=== PATIENT | male | born 1975 | race Caucasian/White ===

== ENCOUNTER 2020-01-20 02:10 | Emergency (ER) | payer BC, OTHER ==
[2020-01-20] MEDS ORDERED: methylPREDNISolone SOD SUCCI 125 MG/2 ML VIAL IV STA (02:29)
[2020-01-20] MEDS ORDERED: IPRATROPIUM-ALBUTEROL 3 ML NEB INHALATION STA (02:29)
[2020-01-20 02:52] LABS: Basophils # (A) 0.1 k/uL (0-0.2); Basophils % (A) 1 %; Eosinophils # (A) 0.4 k/uL (0-0.7); Eosinophils % (A) 5 %; HCT 47.3 % (39.0-53.0); HGB 15.8 gm/dL (13.0-17.5); Lymphocytes # (A) 2.4 k/uL (1.0-4.8); Lymphocytes % (A) 32 %; MCH 31.3 pg (25.0-35.0); MCHC 33.5 g/dL (31.0-37.0); MCV 93.5 fL (80.0-100.0); Mean Platelet Volume 7.5; Monocytes # (A) 0.4 k/uL (0-1.0); Monocytes % (A) 5 %; Neutrophils # (A) 3.9 k/uL (1.3-7.7); Neutrophils % (A) 53 %; Platelet Count 246 k/uL (150-450); RBC 5.06 m/uL (4.30-5.90); RDW 12.5 % (11.5-15.5); WBC 7.3 k/uL (3.8-10.6)
[2020-01-20 03:01] LABS: ALT 25 U/L (4-49); AST 39 U/L (17-59); African American GFR (CKD) >90 (>60 ml/min/1.73 sqM); Albumin 4.4 g/dL (3.5-5.0); Alkaline Phosphatase 93 U/L (38-126); Anion Gap 12 mmol/L; Blood Urea Nitrogen 19 mg/dL (9-20); Calcium 9.5 mg/dL (8.4-10.2); Carbon Dioxide 22 mmol/L (22-30); Chloride 105 mmol/L (98-107); Glucose 105 mg/dL (74-99); Magnesium 2.3 mg/dL (1.6-2.3); Non-African American GFR(CKD) >90 (>60 ml/min/1.73 sqM); Potassium 4.1 mmol/L (3.5-5.1); Sodium 139 mmol/L (137-145); Total Bilirubin 0.4 mg/dL (0.2-1.3); Total Protein 7.4 g/dL (6.3-8.2)
[2020-01-20 03:02] LABS: INR 0.9 (<1.2); Partial Thromboplastin Time 24.3 sec (22.0-30.0); Prothrombin Time 9.7 sec (9.0-12.0)
[2020-01-20] MEDS ORDERED: ALBUTEROL NEBULIZED 2.5 MG/3 ML INHALATION STA ×2 (03:15→04:10)
--- NOTE | 2020-01-20 03:23 | XR ---
EXAMINATION TYPE: XR chest 2V DATE OF EXAM: 01/20/2020 COMPARISON: NONE HISTORY: Difficulty breathing TECHNIQUE: FINDINGS: Heart is normal. Lungs are clear of consolidation. There are no hilar masses. There is no m ediastinal adenopathy. Bony thorax is intact. There is pulmonary hyperinflation and flattening of the diaphragm. IMPRESSION: There is evidence of COPD. No acute lung disease. Normal heart.
[2020-01-20 03:53] VITALS: RESP 19
--- NOTE | 2020-01-20 04:05 | ED ---
General Adult HPI - General Chief complaint: Shortness of Breath Stated complaint: SOB Time Seen by Provider: 01/20/20 02:23 Source: patient, family, RN notes reviewed, old records reviewed Mode of arrival: ambulatory Limitations: no limitations - History of Present Illness Initial comments: 44-year-old male patient with past history of COPD presents ED for shortness of breath. Patient reports that he has not had true follow-up with a primary care provider for his adult life. Patient has been seen at urgent cares and primary care as a few times over the last couple of years. Patient reports that he is always short of breath. Denies any chest pain. Reports that he uses inhalers at home that he gets from friends, also has a nebulizer which he uses when he is able to obtain albuterol. Reports that the shortness of breath has been worse the last 2 days. Reports he is wheezing. Denies any other complaints. Systemic: Pt denies fatigue, fever/chills, rash. Pt denies weakness, night sweats, weight loss. Neuro: Pt denies headache, visual disturbances, syncope or pre-syncope. HEENT: Pt denies ocular discharge or irritation, otalgia, rhinorrhea, pharyngitis or notable lymphadenopathy. Cardiopulmonary: Pt denies chest pain, heart palpitations, dyspnea on exertion. Abdominal/GI: Pt denies abdominal pain, n/v/d. : Pt denies dysuria, burning w/ urination, frequency/urgency. Denies new onset urinary or bowel incontinence. MSK: Pt denies myalgia, loss of strength or function in extremities. Neuro: Pt denies new onset weakness, paresthesias. - Related Data Previous Rx's Medication Instructions Recorded Albuterol Inhaler [Ventolin Hfa 1 - 2 puff INHALATION Q4-6H PRN #1 01/20/20 Inhaler] inhaler Albuterol Nebulized [Ventolin 2.5 mg INHALATION Q4H PRN 10 Days 01/20/20 Nebulized] #60 nebu predniSONE 50 mg PO DAILY #4 tab 01/20/20 Allergies Allergy/AdvReac Type Severity Reaction Status Date / Time No Known Allergies Allergy Verified 01/20/20 02:18 Review of Systems ROS Statement: Those systems with pertinent positive or pertinent negative responses have been documented in the HPI. ROS Other: All systems not noted in ROS Statement are negative. Past Medical History Past Medical History: No Reported History History of Any Multi-Drug Resistant Organisms: None Reported Past Surgical History: No Surgical Hx Reported Past Psychological History: No Psychological Hx Reported Smoking Status: Current every day smoker Past Alcohol Use History: Occasional Past Drug Use History: None Reported General Exam - General Exam Comments Initial Comments: Constitutional: NAD, AOX3, Pt has pleasant affect. HEENT: NC/AT, trachea midline, neck supple, no lymphadenopathy. Posterior pharynx non erythematous, without exudates. External ears appear normal, without discharge. Mucous membranes moist. Eyes PERRLA, EOM intact. There is no scleral icterus. No pallor noted. Cardiopulmonary: RRR, no murmurs, rubs or gallops, no JVD noted. Wheezing noted in anterior and posterior lung st, mild retractions are noted initially, moderate work of breathing. Significant improvement after multiple breathing treatments. Work of breathing has resolved, mild wheezing remains are much improved. No peripheral edema. Abdominal exam: Abdomen soft and non-distended. Abdomen non-tender to palpation in all 4 quadrants. Bowel sounds active in LLQ. No hepatosplenomegaly. No ecchymosis Neuro: CN II-XII grossly intact. No nuchal rigidity. No raccon eyes, no carreno sign, no hemotympanum. No cervical spinal tenderness. MSK: No posterior calf tenderness bilaterally, homans sign negative bilaterally. Posterior tibialis and radial pulse +2 bilaterally. Sensation intact in upper and lower extremities. Full active ROM in upper and lower extremities, 5/5 stregnth. Limitations: no limitations Course Vital Signs 01/20/20 01/20/20 01/20/20 02:15 02:45 03:02 Temperature 97.7 F Pulse Rate 102 H 93 90 Respiratory 20 Rate Blood Pressure 154/99 O2 Sat by Pulse 94 L 97 Oximetry 01/20/20 01/20/20 01/20/20 03:29 03:30 03:41 Temperature Pulse Rate 90 93 90 Respiratory 21 Rate Blood Pressure 135/93 O2 Sat by Pulse 93 L Oximetry 01/20/20 03:52 Temperature Pulse Rate 89 Respiratory 19 Rate Blood Pressure O2 Sat by Pulse 93 L Oximetry Medical Decision Making - Medical Decision Making 44-year-old male patient with past history of COPD presents ED for shortness of breath. Patient reports that he has not had true follow-up with a primary care provider for his adult life. Patient has been seen at urgent cares and primary care as a few times over the last couple of years. Patient reports that he is always short of breath. Denies any chest pain. Reports that he uses inhalers at home that he gets from friends, also has a nebulizer which he uses when he is able to obtain albuterol. Reports that the shortness of breath has been worse the last 2 days. Reports he is wheezing. Denies any other complaints. Patient initial vital signs displayed mildly decreased pule oxygenation 94%. Mild tachycardia. Physical exam didn't display mild retractions, moderate work of breathing, wheezing in anterior lung st. Patient was administered steroids, breathing treatments, patient significantly improved. Wheezing is still faint but much improved. Work of breathing has resolved. Patient oxygenating in the high 90s. Lymph investigations are noncompressive. EKG is nonischemic. Chest x-ray displayed COPD. Patient was counseled on smoking cessation. Patient was recommended admission to hospital however he declines. Patient was discharged with steroids, breathing treatments, referral for outpatient follow-up. Patient has strict return precautions. Case discussed with Dr Herrera. - Lab Data Result diagrams: 01/20/20 02:36 01/20/20 02:36 Lab Results 01/20/20 01/20/20 01/20/20 Range/Units 02:36 02:36 02:36 WBC 7.3 (3.8-10.6) k/uL RBC 5.06 (4.30-5.90) m/uL Hgb 15.8 (13.0-17.5) gm/dL Hct 47.3 (39.0-53.0) % MCV 93.5 (80.0-100.0) fL MCH 31.3 (25.0-35.0) pg MCHC 33.5 (31.0-37.0) g/dL RDW 12.5 (11.5-15.5) % Plt Count 246 (150-450) k/uL Neutrophils % 53 % Lymphocytes % 32 % Monocytes % 5 % Eosinophils % 5 % Basophils % 1 % Neutrophils # 3.9 (1.3-7.7) k/uL Lymphocytes # 2.4 (1.0-4.8) k/uL Monocytes # 0.4 (0-1.0) k/uL Eosinophils # 0.4 (0-0.7) k/uL Basophils # 0.1 (0-0.2) k/uL PT 9.7 (9.0-12.0) sec INR 0.9 (<1.2) APTT 24.3 (22.0-30.0) sec Sodium 139 (137-145) mmol/L Potassium 4.1 (3.5-5.1) mmol/L Chloride 105 (98-107) mmol/L Carbon Dioxide 22 (22-30) mmol/L Anion Gap 12 mmol/L BUN 19 (9-20) mg/dL Creatinine 0.87 (0.66-1.25) mg/dL Est GFR (CKD-EPI)AfAm >90 (>60 ml/min/1.73 sqM) Est GFR (CKD-EPI)NonAf >90 (>60 ml/min/1.73 sqM) Glucose 105 H (74-99) mg/dL Plasma Lactic Acid Georgi (0.7-2.0) mmol/L Calcium 9.5 (8.4-10.2) mg/dL Magnesium 2.3 (1.6-2.3) mg/dL Total Bilirubin 0.4 (0.2-1.3) mg/dL AST 39 (17-59) U/L ALT 25 (4-49) U/L Alkaline Phosphatase 93 (38-126) U/L Troponin I (0.000-0.034) ng/mL NT-Pro-B Natriuret Pep pg/mL Total Protein 7.4 (6.3-8.2) g/dL Albumin 4.4 (3.5-5.0) g/dL 01/20/20 01/20/20 01/20/20 Range/Units 02:36 02:36 02:36 WBC (3.8-10.6) k/uL RBC (4.30-5.90) m/uL Hgb (13.0-17.5) gm/dL Hct (39.0-53.0) % MCV (80.0-100.0) fL MCH (25.0-35.0) pg MCHC (31.0-37.0) g/dL RDW (11.5-15.5) % Plt Count (150-450) k/uL Neutrophils % % Lymphocytes % % Monocytes % % Eosinophils % % Basophils % % Neutrophils # (1.3-7.7) k/uL Lymphocytes # (1.0-4.8) k/uL Monocytes # (0-1.0) k/uL Eosinophils # (0-0.7) k/uL Basophils # (0-0.2) k/uL PT (9.0-12.0) sec INR (<1.2) APTT (22.0-30.0) sec Sodium (137-145) mmol/L Potassium (3.5-5.1) mmol/L Chloride (98-107) mmol/L Carbon Dioxide (22-30) mmol/L Anion Gap mmol/L BUN (9-20) mg/dL Creatinine (0.66-1.25) mg/dL Est GFR (CKD-EPI)AfAm (>60 ml/min/1.73 sqM) Est GFR (CKD-EPI)NonAf (>60 ml/min/1.73 sqM) Glucose (74-99) mg/dL Plasma Lactic Acid Georgi 1.7 (0.7-2.0) mmol/L Calcium (8.4-10.2) mg/dL Magnesium (1.6-2.3) mg/dL Total Bilirubin (0.2-1.3) mg/dL AST (17-59) U/L ALT (4-49) U/L Alkaline Phosphatase (38-126) U/L Troponin I <0.012 (0.000-0.034) ng/mL NT-Pro-B Natriuret Pep 60 pg/mL Total Protein (6.3-8.2) g/dL Albumin (3.5-5.0) g/dL Disposition Clinical Impression: COPD exacerbation Disposition: HOME SELF-CARE Condition: Stable Instructions (If sedation given, give patient instructions): COPD (Chronic Obstructive Pulmonary Disease) (DC) Additional Instructions: Use medications as directed. Use breathing treatments as needed for shortness of breath. Take steroids daily for the next 4 days. Follow-up with primary care provider and junior estimator tomorrow. Return to ER if condition worsens in any way. Prescriptions: predniSONE 50 mg PO DAILY #4 tab Albuterol Inhaler [Ventolin Hfa Inhaler] 1 - 2 puff INHALATION Q4-6H PRN #1 inhaler PRN Reason: Cough Albuterol Nebulized [Ventolin Nebulized] 2.5 mg INHALATION Q4H PRN 10 Days #60 nebu PRN Reason: Wheezing Is patient prescribed a controlled substance at d/c from ED?: No Referrals: None,Stated [Primary Care Provider] - 1-2 days Vu Marte DO [Doctor of Osteopathic Medicine] - 1-[address] [facility] [NON-STAFF] - 1-2 days
[2020-01-20 04:30] VITALS: BP 148/94; PULSE 92; TEMP 97.6
== END 2020-01-20 04:30 | disposition home or self-care (01) ==
LOC: EC 02:10
DX: J44.1 Chronic obstructive pulmonary disease with (acute) exacerbation (principal); F17.200 Nicotine dependence, unspecified, uncomplicated; Z76.0 Encounter for issue of repeat prescription
CPT/HCPCS: 36415; 94640 ×2; 93005; 83880; 80053; 83605; 83735; 84484; 85025; 85610; 85730; 71046; 99285; 96374; J2930

== ENCOUNTER 2023-10-02 13:34 | Emergency (ER) | payer OTHER ==
[2023-10-02] MEDS ORDERED: SODIUM CHLORIDE 0.9% 1,000 ML IV STA (14:46)
[2023-10-02] MEDS ORDERED: DIPH,PERTUS(ACELL)TETVAC-LF 0.5 ML VIAL IM ONE (14:46)
[2023-10-02] MEDS ORDERED: HYDROmorphone 1 MG/ML 1 ML SYRINGE IVP STA ×2 (14:46→16:28)
[2023-10-02 15:09] LABS: Basophils % (A) 0 %; Eosinophils # (A) 0.4 k/uL (0-0.7); Eosinophils % (A) 5 %; HCT 40.7 % (39.0-53.0); HGB 13.2 gm/dL (13.0-17.5); Lymphocytes # (A) 1.5 k/uL (1.0-4.8); Lymphocytes % (A) 18 %; MCH 30.6 pg (25.0-35.0); MCHC 32.4 g/dL (31.0-37.0); MCV 94.3 fL (80.0-100.0); Mean Platelet Volume 8.1; Monocytes # (A) 0.4 k/uL (0-1.0); Monocytes % (A) 5 %; Neutrophils # (A) 5.8 k/uL (1.3-7.7); Neutrophils % (A) 70 %; Platelet Count 225 k/uL (150-450); RBC 4.31 m/uL (4.30-5.90); RDW 13.1 % (11.5-15.5); WBC 8.3 k/uL (3.8-10.6)
[2023-10-02 15:19] LABS: ALT 27 U/L (4-49); AST 50 U/L (17-59); African American GFR (CKD) >90 (>60 ml/min/1.73 sqM); Albumin 3.8 g/dL (3.5-5.0); Alkaline Phosphatase 102 U/L (38-126); Anion Gap 10 mmol/L; Blood Urea Nitrogen 23 mg/dL (9-20); Calcium 8.8 mg/dL (8.4-10.2); Carbon Dioxide 25 mmol/L (22-30); Chloride 105 mmol/L (98-107); Creatine Kinase 592 U/L (55-170); Glucose 123 mg/dL (74-99); Non-African American GFR(CKD) >90 (>60 ml/min/1.73 sqM); Potassium 3.9 mmol/L (3.5-5.1); Sodium 140 mmol/L (137-145); Total Bilirubin 0.6 mg/dL (0.2-1.3); Total Protein 6.4 g/dL (6.3-8.2)
[2023-10-02] MEDS ORDERED: SODIUM CHLORIDE 0.9% 1,000 ML IV ONE (15:49)
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
[2023-10-02 16:26] VITALS: RESP 18; TEMP 98.1
[2023-10-02] MEDS ORDERED: HYDROmorphone 1 MG/ML 1 ML SYRINGE IVP PRN (18:16)
[2023-10-02] MEDS ORDERED: NALOXONE 0.4 MG/ML 1 ML VIAL IV PRN (18:16)
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
[2023-10-02] MEDS ORDERED: KETOROLAC 15 MG/ML 1 ML VIAL IVP SCH (18:30)
[2023-10-02] MEDS ORDERED: SODIUM CHLORIDE 0.9% 1,000 ML IV SCH (18:30)
[2023-10-02 22:38] VITALS: BP 154/84; PULSE 84
[2023-10-02 23:26] LABS: Appearance,Urine Clear (Clear); Bacteria,Urine Rare /hpf; Bilirubin,Urine Negative (Negative); Blood,Urine Large (Negative); Budding Yeast,Urine Few /hpf; Color,Urine Yellow; Glucose,Urine (UA) Negative (Negative); Ketones,Urine Negative (Negative); Leukocyte Esterase,Urine Moderate (Negative); Mucus,Urine Rare /hpf; Nitrite,Urine Negative (Negative); Protein,Urine 1+ (Negative); RBC,Urine >182 /hpf (0-5); Squamous Epithelial Cell,Urine 2 /hpf (0-4); Urobilinogen,Urine <2.0 mg/dL (<2.0); WBC,Urine 6 /hpf (0-5)
[2023-10-02 23:30] LABS: Amphetamine Screen,Urine Detected (NotDetected); Benzodiazepines Screen,Urine Detected (NotDetected); Cocaine Screen,Urine Not Detected (NotDetected); Opiate Screen,Urine Detected (NotDetected); Phencyclidine Screen,Urine Not Detected (NotDetected); Urn Cannabinoid Scrn Not Detected (NotDetected)
[2023-10-02 23:31] LABS: Barbiturate Screen,Urine Not Detected (NotDetected); Methadone Screen, Urine Not Detected (NotDetected); Oxycodone Screen, Urine Not Detected (NotDetected); Tricyclic Antidepressant,Urine Not Detected (NotDetected)
[2023-10-03 00:22] LABS: Specific Gravity,Urine >1.050 (1.001-1.035)
== END 2023-10-02 23:48 | disposition other institution (70) ==
LOC: EC 13:34 → 6NMEDSUR 18:16 → UNDOADMOB 18:16 → EC 23:48
DX: S00.91XA Abrasion of unspecified part of head, initial encounter (principal); R74.8 Abnormal levels of other serum enzymes; J45.909 Unspecified asthma, uncomplicated; F17.200 Nicotine dependence, unspecified, uncomplicated; Z79.51 Long term (current) use of inhaled steroids; Z23 Encounter for immunization; W23.0XXA Caught, crushed, jammed, or pinched between moving objects, initial encounter
CPT/HCPCS: 36415; 80053; 82550; 83605; 85025; 81001; 80306; 73590; 72170; 71046; 72125; 70450; 74177; 90715; 99285; 96374; 96375; 96376 ×2; 96361; 90471; J1170; J1885; Q9967

== ENCOUNTER 2023-11-05 23:21 | Inpatient (IN) | payer OTHER ==
[2023-11-05] MEDS ORDERED: HYDROmorphone 1 MG/ML 1 ML SYRINGE IVP STA (23:29)
[2023-11-05] MEDS ORDERED: VANCOMYCIN IV PER PHARMACY 1 EACH MISC MISCELLANE PRN (23:38)
[2023-11-05] MEDS ORDERED: PIPERACILLIN-TAZOBACTAM 3.375 GM in SODIUM CHLORIDE 0.9% 100 ML IVPB STA (23:40)
[2023-11-05] MEDS ORDERED: ONDANSETRON 4 MG/2 ML VIAL IVP PRN (23:40)
[2023-11-05] MEDS ORDERED: NALOXONE 0.4 MG/ML 1 ML VIAL IV PRN (23:40)
[2023-11-05] MEDS ORDERED: VANCOMYCIN 1,250 MG in SODIUM CHLORIDE 0.9% 250 ML IVPB STA (23:41)
--- NOTE | 2023-11-06 00:12 | ED ---
General Adult HPI - General Chief complaint: Recheck/Abnormal Lab/Rx Stated complaint: Surgical consult Time Seen by Provider: 11/05/23 23:22 Source: patient, EMS, RN notes reviewed, old records reviewed Mode of arrival: EMS Limitations: no limitations - History of Present Illness Initial comments: 48-year-old male sent for evaluation of soft tissue infection from outside hospital. Patient was seen at this institution approximately one month ago with traumatic injury to the left leg. There was no associated fracture just soft tissue injury. He developed infection and was treated with antibiotics approximately 2 weeks ago and was seen at outside hospital where he was prescribed continuation of antibiotics but was unable to get this medication filled. This was approximately one week ago. He developed worsening pain swelling and drainage over the past one week. He was seen at [facility] today where he received workup including CBC, CMP, CRP, computed tomography scan of the leg and was initiated on antibiotics. He was transferred to this institution for further evaluation of left leg soft tissue infection. He was given Zosyn and vancomycin prior to transfer. - Related Data Home Medications Medication Instructions Recorded Confirmed Albuterol Inhaler [Ventolin Hfa 1 - 2 puff INHALATION RT-Q4H PRN 10/02/23 10/02/23 Inhaler] Budesonide/Formoterol Fumarate 2 puff INHALATION RT-BID 10/02/23 10/02/23 [Symbicort 160-4.5 Mcg Inhaler] Allergies Allergy/AdvReac Type Severity Reaction Status Date / Time No Known Allergies Allergy Verified 10/02/23 18:05 Review of Systems ROS Statement: Those systems with pertinent positive or pertinent negative responses have been documented in the HPI. ROS Other: All systems not noted in ROS Statement are negative. Past Medical History Past Medical History: Asthma History of Any Multi-Drug Resistant Organisms: None Reported Past Surgical History: No Surgical Hx Reported Past Psychological History: No Psychological Hx Reported Smoking Status: Current every day smoker Past Alcohol Use History: Occasional Past Drug Use History: None Reported General Exam General appearance: alert, in no apparent distress Head exam: Present: atraumatic, normocephalic Eye exam: Present: normal appearance, PERRL Respiratory exam: Present: normal lung sounds bilaterally. Absent: respiratory distress, wheezes Cardiovascular Exam: Present: normal rhythm, tachycardia GI/Abdominal exam: Present: soft. Absent: distended, tenderness, guarding Extremities exam: Present: other (Erythema and warmth from the proximal lateral leg approximately two thirds cell. There is 2 areas of open abscess with purulent drainage.) Neurological exam: Present: alert, CN II-XII intact Psychiatric exam: Present: normal affect, normal mood Course Vital Signs 11/05/23 11/05/23 23:23 23:58 Temperature 100.3 F H Pulse Rate 121 H 123 H Respiratory 22 28 H Rate Blood Pressure 175/115 178/95 O2 Sat by Pulse 96 94 L Oximetry Medical Decision Making - Medical Decision Making Was pt. sent in by a medical professional or institution (, PA, JOB DEVELOPER FOR DEAF ADULTS, urgent care, hospital, or jail...) When possible be specific @ -[Sent from [facility] Did you speak to anyone other than the patient for history (EMS, parent, family, police, friend...)? What history was obtained from this source @ -[No] Did you review nursing and triage notes (agree or disagree)? Why? @ -[I reviewed and agree with nursing and triage notes] Were old charts reviewed (outside hosp., previous admission, EMS record, old EKG, old radiological studies, urgent care reports/EKG's, jail records)? Report findings @ -[No old charts were reviewed] Differential Diagnosis (chest pain, altered mental status, abdominal pain women, abdominal pain men, vaginal bleeding, weakness, fever, dyspnea, syncope, headache, dizziness, GI bleed, back pain, seizure, CVA, palpatations, mental health, musculoskeletal)? @ -Skin soft tissue infection, necrotizing fasciitis, abscess with cellulitis EKG interpreted by me (3pts min.). @ -[As above] X-rays interpreted by me (1pt min.). @ -[None done] CT interpreted by me (1pt min.). @ CT of the left leg, images loaded from outside hospital, there is fluid collection along the lateral aspect of the left leg without gas formation. U/S interpreted by me (1pt. min.). @ -[None done] What testing was considered but not performed or refused? (CT, X-rays, U/S, labs)? Why? @ -[None] What meds were considered but not given or refused? Why? @ -[None] Did you discuss the management of the patient with other professionals (professionals i.e. , PA, JOB DEVELOPER FOR DEAF ADULTS, lab, RT, psych nurse, social media campaign manager, account manager education, teacher, bank operations officer, telephonic case manager)? Give summary @ -[No] Was smoking cessation discussed for >3mins.? @ -[No] Was critical care preformed (if so, how long)? @ -[No] Were there social determinants of health that impacted care today? How? (Homelessness, low income, unemployed, alcoholism, drug addiction, transportation, low edu. Level, literacy, decrease access to med. care, long term, rehab)? @ -[No] Was there de-escalation of care discussed even if they declined (Discuss DNR or withdrawal of care, Hospice)? DNR status @ -[No] What co-morbidities impacted this encounter? (DM, HTN, Smoking, COPD, CAD, Cancer, CVA, ARF, Chemo, Hep., AIDS, mental health diagnosis, sleep apnea, morbid obesity)? @ -[None] Was patient admitted / discharged? Hospital course, mention meds given and route, prescriptions, significant lab abnormalities, going to OR and other pertinent info. @ -48-year-old male with soft tissue infection of the left leg. Patient had CT report which showed soft tissue infection without osteomyelitis and without gas formation. He had a normal white blood cell count, elevated CRP. Patient was started on vancomycin and Zosyn prior to transfer. Repeat laboratory studies will be obtained and antibiotics will be continued. The infection is freely draining purulent material at the time my evaluation. This is sent for culture. The patient will benefit both from surgical consultation and factious disease consultation. He will be admitted to internal medicine. Undiagnosed new problem with uncertain prognosis? @ -[No] Drug Therapy requiring intensive monitoring for toxicity (Heparin, Nitro, Insulin, Cardizem)? @ -[No] Were any procedures done? @ -[No] Diagnosis/symptom? @ -[Left leg abscess with cellulitis, sepsis Acute, or Chronic, or Acute on Chronic? @ -[Acute Uncomplicated (without systemic symptoms) or Complicated (systemic symptoms)? @ -[default] Side effects of treatment? @ -[No] Exacerbation, Progression, or Severe Exacerbation? @ -[No] Poses a threat to life or bodily function? How? (Chest pain, [place], [place], pneumonia, PE, COPD, DKA, ARF, appy, cholecystitis, CVA, Diverticulitis, Homicidal, Suicidal, threat to staff... and all critical care pts) @ -[No] Disposition Clinical Impression: Abscess of left leg, Cellulitis Disposition: ADMITTED IP TO THIS HOSP Condition: Stable Is patient prescribed a controlled substance at d/c from ED?: No Referrals: None,Stated [Primary Care Provider] - 1-2 days Time of Disposition: 00:13
[2023-11-06] MEDS ORDERED: CLINDAMYCIN 600 MG in DEXTROSE 5% IN WATER 50 ML IVPB STA ×2 (00:16)
[2023-11-06] MEDS: SODIUM CHLORIDE 0.9% 1,000 ML IV SCH ×4 (00:46→23:19)
[2023-11-06 00:56] LABS: Basophils % (A) 1 %; Eosinophils # (A) 0.1 k/uL (0-0.7); Eosinophils % (A) 3 %; HCT 42.6 % (39.0-53.0); HGB 13.6 gm/dL (13.0-17.5); Lymphocytes # (A) 1.2 k/uL (1.0-4.8); Lymphocytes % (A) 23 %; MCH 31.6 pg (25.0-35.0); MCHC 31.8 g/dL (31.0-37.0); MCV 99.2 fL (80.0-100.0); Mean Platelet Volume 7.6; Monocytes # (A) 0.7 k/uL (0-1.0); Monocytes % (A) 13 %; Neutrophils % (A) 58 %; Platelet Count 313 k/uL (150-450); RDW 12.8 % (11.5-15.5); WBC 5.3 k/uL (3.8-10.6)
[2023-11-06 01:14] LABS: ALT 54 U/L (4-49); AST 53 U/L (17-59); African American GFR (CKD) >90 (>60 ml/min/1.73 sqM); Albumin 3.5 g/dL (3.5-5.0); Alkaline Phosphatase 150 U/L (38-126); Anion Gap 10 mmol/L; Blood Urea Nitrogen 21 mg/dL (9-20); Calcium 8.7 mg/dL (8.4-10.2); Carbon Dioxide 25 mmol/L (22-30); Chloride 102 mmol/L (98-107); Glucose 106 mg/dL (74-99); Non-African American GFR(CKD) 86 (>60 ml/min/1.73 sqM); Potassium 4.7 mmol/L (3.5-5.1); Sodium 137 mmol/L (137-145); Total Bilirubin 0.4 mg/dL (0.2-1.3); Total Protein 6.4 g/dL (6.3-8.2)
[2023-11-06] MEDS: HYDROmorphone 1 MG/ML 1 ML SYRINGE IVP PRN ×7 (02:04→23:13)
[2023-11-06] MEDS: VANCOMYCIN 1,250 MG in SODIUM CHLORIDE 0.9% 250 ML IVPB SCH ×2 (05:31→17:11)
[2023-11-06] MEDS: ACETAMINOPHEN TAB 325 MG TAB PO PRN ×2 (08:39→19:54)
[2023-11-06] MEDS ORDERED: PIPERACILLIN-TAZOBACTAM 3.375 GM in SODIUM CHLORIDE 0.9% 100 ML IVPB SCH (09:00)
[2023-11-06] MEDS ORDERED: CLINDAMYCIN 600 MG in DEXTROSE 5% IN WATER 50 ML IVPB SCH ×2 (10:00)
[2023-11-06] MEDS ORDERED: ALBUTEROL NEBULIZED 2.5 MG/3 ML INHALATION PRN (11:10)
--- NOTE | 2023-11-06 14:25 | P.CNOR ---
History of Present Illness - HPI Consult date: 11/06/23 Requesting physician: Bere Aguirre Consult reason: other (left leg abscess, trauma hx) History of present illness: Patient is a 48-year-old male who was transferred to [facility] for evaluation of soft tissue infection from [facility]. Patient was seen and [facility] the emergency department about 1 month ago for traumatic injury to left. Patient had no fractures at that time and only had soft tissue injuries. Patient did develop infection to the left calf and was treated with antibiotics about 2 weeks ago. Patient did present to [facility] and was prescribed continuation for antibiotics however, patient was not able to get medication filled. Patient states over the past week he has had increased pain and swelling to the left lower extremity as well as drainage. Patient does mention he has had fever and chills as well. Patient states he did present to [facility] yesterday where he had a computed tomography scan of the left lower extremity. Patient was transferred to the emergency department. For further evaluation continued care. Patient was seen at bedside this afternoon lying semirecumbent position with dressing present over the left lower extremity. Patient states he has been weightbearing as tolerated since the i njury, however, patient does have increased pain to the left leg when he puts weight on it. Patient denies any left ankle/left knee pain. Patient does say he has some pain in left foot. Patient states there has been increased drainage over the past several days. Patient also states that is an increase in swelling and redness. Patient denies any previous orthopedic surgical history. Patient says has been given several different antibiotics were the past month. Patient denies chest pain, shortness breath, nausea, vomiting, change in vision, smell/bladder control. Past Medical History Past Medical History: Asthma, COPD Additional Past Medical History / Comment(s): treated OP for leg infection History of Any Multi-Drug Resistant Organisms: None Reported Past Surgical History: No Surgical Hx Reported Past Psychological History: No Psychological Hx Reported Smoking Status: Never smoker Past Alcohol Use History: Occasional Past Drug Use History: None Reported Medications and Allergies Home Medications Medication Instructions Recorded Confirmed Type Albuterol Inhaler [Ventolin Hfa 1 - 2 puff INHALATION RT-Q4H PRN 10/02/23 11/06/23 History Inhaler] Budesonide/Formoterol Fumarate 2 puff INHALATION RT-BID 10/02/23 11/06/23 History [Symbicort 160-4.5 Mcg Inhaler] Allergies Allergy/AdvReac Type Severity Reaction Status Date / Time No Known Allergies Allergy Verified 11/06/23 07:37 Physical Examination Inspection: Nonhealing wound present to the left lower extremity over the left anterolateral calf. Positive for purulent drainage. The drainage from one wound measuring 2 x 2 centimeters roughly in diameter. There is also wound 1 x 1 cm in diameter just distal to the proximal wound. Positive for moderate swelling diffusely throughout the calf as well as significant erythema. Negative for any open fractures, significant ecchymosis. Sensation: Equal, symmetric, intact throughout the upper extremities. Palpation: Severe TTP throughout left calf near wound. Moderate TTP over dorsum of left foot. NTTP throughout rest of exam. Range of motion: Full range of motion throughout bilateral upper and lower extremities on exam. Motor: 4+/5 in all major motor in bilateral upper and lower extremities. Neurovascular: Radial pulses intact, 2+. Cap refill under 3 seconds in digits upper extremities. DP pulses palpable. Special tests: Negative Homans bilaterally Results - Labs Labs: Abnormal Lab Results - Last 24 Hours (Table) 11/05/23 Range/Units 23:43 BUN 21 H (9-20) mg/dL Glucose 106 H (74-99) mg/dL ALT 54 H (4-49) U/L Alkaline Phosphatase 150 H (38-126) U/L H & H 11/05/23 Range/Units 23:43 Hgb 13.6 (13.0-17.5) gm/dL Hct 42.6 (39.0-53.0) % Result Diagrams: 11/05/23 23:43 11/05/23 23:43 - Diagnostic results Comments: Computed tomography scan of the left lower extremity tibia/fibula negative for any fracture. There is a small area in the left calf presenting with soft tissue swelling. Appears to be superficial. Assessment and Plan Assessment: 1. Left lower extremity soft tissue wound, nonhealing Plan: 1. Left lower extremity soft tissue wound, nonhealing - I did review the findings of the computed tomography scan of the left lower extremity performed at [facility] with my attending, Dr. Bowles. Computed tomography scan of the left lower extremity tibia/fibula negative for any fracture. There is a small area in the left calf presenting with soft tissue swelling/fluid. Appears to be superficial. Based on the findings of the exam and computed tomography scan performed at outside facility, at this time we are not recommending any emergent/urgent orthopedic surgical intervention. We do recommend general surge ry and wound care to see patient. Due to nonhealing wound to the left lower extremity calf, patient may potentially need skin grafting. Plan for daily dressing changes with petroleum gauze, 4 x 4's, ABD and Kerlix. Appreciate wound care, ID, and general surgery management. Abx per ID/medicine. We will be available as needed. No orthopedic intervention planned. 2. Appreciate medical, wound care, ID and general surgery management 3. Pain management - tylenol 4. DVT prophylaxis - heparin 5. GI prophylaxis recs 6. PT/OT - weightbearing as tolerated with walker as needed 7. Appreciate consult Time with Patient: Less than 30
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
[2023-11-06] MEDS: AMPICILLIN-SULBACTAM 3 GM in SODIUM CHLORIDE 0.9% 100 ML IVPB SCH ×2 (17:11→23:13)
[2023-11-06] MEDS: HEPARIN SODIUM,PORCINE 5,000 UNIT/ML 1 ML VIAL SQ SCH ×2 (17:11→23:13)
[2023-11-06] MEDS: SYMBICORT 160-4.5 MCG INHALER INHALATION SCH (21:22)
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
[2023-11-07] MEDS: HYDROmorphone 1 MG/ML 1 ML SYRINGE IVP PRN ×6 (03:42→21:52)
[2023-11-07] MEDS: AMPICILLIN-SULBACTAM 3 GM in SODIUM CHLORIDE 0.9% 100 ML IVPB SCH ×3 (06:10→12:35)
[2023-11-07] MEDS: VANCOMYCIN 1,250 MG in SODIUM CHLORIDE 0.9% 250 ML IVPB SCH ×3 (06:10→23:22)
[2023-11-07] MEDS: SODIUM CHLORIDE 0.9% 1,000 ML IV SCH ×3 (06:10→21:53)
[2023-11-07 07:01] LABS: Basophils % (A) 1 %; Eosinophils # (A) 0.4 k/uL (0-0.7); Eosinophils % (A) 6 %; HCT 37.8 % (39.0-53.0); HGB 12.2 gm/dL (13.0-17.5); Lymphocytes # (A) 1.3 k/uL (1.0-4.8); Lymphocytes % (A) 23 %; MCH 31.8 pg (25.0-35.0); MCHC 32.4 g/dL (31.0-37.0); MCV 98.3 fL (80.0-100.0); Mean Platelet Volume 7.4; Monocytes # (A) 0.6 k/uL (0-1.0); Monocytes % (A) 11 %; Neutrophils # (A) 3.1 k/uL (1.3-7.7); Neutrophils % (A) 55 %; Platelet Count 304 k/uL (150-450); RBC 3.84 m/uL (4.30-5.90); RDW 12.4 % (11.5-15.5); WBC 5.6 k/uL (3.8-10.6)
[2023-11-07 07:16] LABS: African American GFR (CKD) >90 (>60 ml/min/1.73 sqM); Anion Gap 8 mmol/L; Blood Urea Nitrogen 18 mg/dL (9-20); Calcium 8.2 mg/dL (8.4-10.2); Carbon Dioxide 24 mmol/L (22-30); Chloride 107 mmol/L (98-107); Glucose 120 mg/dL (74-99); Non-African American GFR(CKD) >90 (>60 ml/min/1.73 sqM); Potassium 4.2 mmol/L (3.5-5.1); Sodium 139 mmol/L (137-145)
[2023-11-07] MEDS: SYMBICORT 160-4.5 MCG INHALER INHALATION SCH ×2 (08:55→20:18)
[2023-11-07] MEDS: FAMOTIDINE 20 MG TAB PO SCH ×2 (08:59→21:52)
[2023-11-07] MEDS: HEPARIN SODIUM,PORCINE 5,000 UNIT/ML 1 ML VIAL SQ SCH ×3 (09:05→23:22)
[2023-11-07] MEDS ORDERED: IV FLUID CONTINUATION 900 ML IV ONE (11:36)
[2023-11-07] MEDS ORDERED: fentaNYL (PF) 50 MCG/ML 2 ML AMP IVP ONE (11:47)
[2023-11-07] MEDS ORDERED: fentaNYL (PF) 50 MCG/ML 2 ML AMP ONE (12:30)
[2023-11-07] MEDS ORDERED: PROPOFOL 10 MG/ML 20 ML VIAL IV ONE (12:30)
[2023-11-07] MEDS ORDERED: MIDAZOLAM 2 MG/2 ML VIAL ONE (12:30)
[2023-11-07] MEDS ORDERED: LIDOCAINE 1% INJ 10MG/ML (20 ML MDV) ONE (12:30)
--- NOTE | 2023-11-07 12:57 | P.PCN ---
Date of Procedure: 11/07/23 Procedure(s) Performed: PREOPERATIVE DIAGNOSIS: Left leg abscess POSTOPERATIVE DIAGNOSIS: Same PROCEDURE: Incision drainage and debridement left cath abscess SURGEON: Betsy EBL: 5 mL ANESTHESIA: Gen. COMPLICATIONS: None OPERATIVE PROCEDURE: Patient placed on the operating table in the supine position. The lateral aspect of the left Was prepped and draped sterilely. The patient had 2 wounds present with necrotic skin. Superior hills measuring 3 x 3.5 cm, inferior wound measuring 2 x 2.5 cm. There was a 1 cm bridge of skin between the 2. The necrotic skin was excised including the subcutaneous tissues. Purulent fluid was then evacuated. There was tunneling of the wound circumferentially mostly in the anterior location by about 3-5 cm. Additional septations were bluntly dissected. Given the significant tunneling and undermining of the skin surfaces I removed the skin bridge between the 2 sites with a subsequent wound now measuring 6.5 x 3.5 cm. The undermining was irrigated thoroughly with saline. A curet was used to debride the subcutaneous muscular layer and superficial fascia as well. Healthy tissue was identified at this time. The wound was then packed with a lightly moistened Clare roll. Sterile dressings were applied. DISPOSITION: Stable to recovery room
[2023-11-07] MEDS ORDERED: VANCOMYCIN TROUGH DUE 1 EACH MISC MISCELLANE ONE (16:00)
[2023-11-08] MEDS: TEMAZEPAM 7.5 MG CAP PO PRN (00:15)
[2023-11-08] MEDS: HYDROmorphone 0.5 MG/0.5 ML SYRINGE IVP PRN (01:37)
[2023-11-08] MEDS: HYDROmorphone 1 MG/ML 1 ML SYRINGE IVP PRN ×5 (05:11→20:48)
[2023-11-08] MEDS: SODIUM CHLORIDE 0.9% 1,000 ML IV SCH ×3 (05:16→22:12)
[2023-11-08] MEDS: SYMBICORT 160-4.5 MCG INHALER INHALATION SCH ×2 (09:02→20:18)
[2023-11-08] MEDS: HEPARIN SODIUM,PORCINE 5,000 UNIT/ML 1 ML VIAL SQ SCH ×2 (09:19→17:02)
[2023-11-08] MEDS: VANCOMYCIN 1,250 MG in SODIUM CHLORIDE 0.9% 250 ML IVPB SCH ×2 (09:20→17:02)
[2023-11-08] MEDS: FAMOTIDINE 20 MG TAB PO SCH ×2 (09:20→22:15)
[2023-11-08 09:39] LABS: African American GFR (CKD) >90 (>60 ml/min/1.73 sqM); Non-African American GFR(CKD) >90 (>60 ml/min/1.73 sqM)
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
--- NOTE | 2023-11-08 12:56 | P.PN ---
Subjective Progress Note Date: 11/08/23 CHIEF COMPLAINT: Left lower leg abscess HISTORY OF PRESENT ILLNESS: Patient is postop day #1 status post incision and drainage with debridement of left calf abscess. Patient reports pain is decreased. He denies a nausea vomiting. Afebrile. Cultures growing MRSA. PHYSICAL EXAM: VITAL SIGNS: Reviewed. GENERAL: Well-developed in no acute distress. Extremities: Left lateral calf dressing with serous drainage. Decreased erythema. Decrease tenderness with palpation ASSESSMENT: 1. Left calf abscess status post incision and drainage with debridement PLAN: -Patient to shower daily -Continue local wound care -Continue antibiotics per ID service Physician Lighting Engineer note has been reviewed by physician. Signing provider agrees with the documented findings, assessment, and plan of care. Objective - Vital Signs Vital signs: Vital Signs Temp 98.4 F 11/08/23 12:00 Pulse 88 11/08/23 12:00 Resp 14 11/08/23 12:00 BP 149/86 11/08/23 12:00 Pulse Ox 95 11/08/23 12:00 FiO2 Intake & Output 11/07/23 11/08/23 11/08/23 18:59 06:59 18:59 Intake Total 550 Output Total 680 600 250 Balance -130 -600 -250 Intake: IV 550 Output: Urine 675 600 250 Estimated Blood Loss 5 Other: Voiding Method Toilet Toilet Urinal Urinal - Labs CBC & Chem 7: 11/07/23 06:26 11/08/23 08:28 Labs: Microbiology - Last 24 Hours (Table) 11/06/23 12:30 Gram Stain - Final Leg - Left Wound Culture - Final Methicillin resist S. aureus 11/05/23 23:43 Gram Stain - Final Leg - Left Wound Culture - Final Methicillin resist S. aureus 11/07/23 12:50 Gram Stain - Preliminary Leg - Left
[2023-11-09] MEDS: HYDROmorphone 1 MG/ML 1 ML SYRINGE IVP PRN ×4 (00:23→20:12)
[2023-11-09] MEDS: HEPARIN SODIUM,PORCINE 5,000 UNIT/ML 1 ML VIAL SQ SCH ×3 (00:23→16:04)
[2023-11-09] MEDS: VANCOMYCIN 1,250 MG in SODIUM CHLORIDE 0.9% 250 ML IVPB SCH ×3 (00:23→16:04)
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
[2023-11-09] MEDS ORDERED: VANCOMYCIN TROUGH DUE 1 EACH MISC MISCELLANE ONE (07:00)
[2023-11-09] MEDS: FAMOTIDINE 20 MG TAB PO SCH ×2 (08:28→20:12)
[2023-11-09 09:07] LABS: Basophils % (A) 1 %; Eosinophils # (A) 0.4 k/uL (0-0.7); Eosinophils % (A) 8 %; HCT 38.1 % (39.0-53.0); HGB 12.4 gm/dL (13.0-17.5); Lymphocytes # (A) 1.3 k/uL (1.0-4.8); Lymphocytes % (A) 24 %; MCH 31.3 pg (25.0-35.0); MCHC 32.5 g/dL (31.0-37.0); MCV 96.1 fL (80.0-100.0); Mean Platelet Volume 7.7; Monocytes # (A) 0.6 k/uL (0-1.0); Monocytes % (A) 10 %; Neutrophils # (A) 2.8 k/uL (1.3-7.7); Neutrophils % (A) 53 %; Platelet Count 392 k/uL (150-450); RBC 3.96 m/uL (4.30-5.90); RDW 12.7 % (11.5-15.5); WBC 5.3 k/uL (3.8-10.6)
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
[2023-11-09 09:17] LABS: African American GFR (CKD) >90 (>60 ml/min/1.73 sqM); Anion Gap 10 mmol/L; Blood Urea Nitrogen 12 mg/dL (9-20); Calcium 8.6 mg/dL (8.4-10.2); Carbon Dioxide 23 mmol/L (22-30); Chloride 106 mmol/L (98-107); Glucose 125 mg/dL (74-99); Non-African American GFR(CKD) >90 (>60 ml/min/1.73 sqM); Potassium 3.9 mmol/L (3.5-5.1); Sodium 139 mmol/L (137-145)
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
[2023-11-09] MEDS: SYMBICORT 160-4.5 MCG INHALER INHALATION SCH ×2 (09:25→21:38)
--- NOTE | 2023-11-09 12:24 | P.PN ---
Subjective Progress Note Date: 11/09/23 CHIEF COMPLAINT: Left lower leg abscess HISTORY OF PRESENT ILLNESS: Patient is postop day #2 status post incision and drainage with debridement of left calf abscess. Patient did have dressing changed yesterday. Patient reports that he is feeling better. He has less pain. Afebrile. WBC 5.3 PHYSICAL EXAM: VITAL SIGNS: Reviewed. GENERAL: Well-developed in no acute distress. Extremities: Left calf dressing clean dry and intact ASSESSMENT: 1. Left calf abscess status post incision and drainage with debridement PLAN: -Patient to shower daily -Continue local wound care -Continue antibiotics per ID service Physician Bar Turner note has been reviewed by physician. Signing provider agrees with the documented findings, assessment, and plan of care. I have personally seen and examined the patient, reviewed the CLIENT ANALYST /PAs history, exam and MDM and agree with the assessment and plan as written. Based on total visit time, I have performed more than 50% of the visit. As above: Patient doing better today. Pain is improved. Continue local wound care. Possible discharge tomorrow. Objective - Vital Signs Vital signs: Vital Signs Temp 98.6 F 11/09/23 11:30 Pulse 87 11/09/23 11:30 Resp 16 11/09/23 11:30 BP 122/79 11/09/23 11:30 Pulse Ox 95 11/09/23 11:30 FiO2 Intake & Output 11/08/23 11/09/23 11/09/23 18:59 06:59 18:59 Intake Total 250 10 Output Total 950 700 Balance -700 -700 10 Intake: IV 10 Invasive Line 3 10 Intake, IV Titration 250 Amount Vancomycin 1,250 mg In 250 Sodium Chloride 0.9% 250 ml @ 125 mls/hr IVPB Q8HR [facility] Rx#:[id number] Output: Urine 950 700 Other: Voiding Method Toilet Toilet Toilet Urinal Urinal Urinal # Voids 1 - Labs CBC & Chem 7: 11/09/23 08:47 11/09/23 08:47 Labs: Abnormal Lab Results - Last 24 Hours (Table) 11/09/23 11/09/23 Range/Units 08:47 08:47 RBC 3.96 L (4.30-5.90) m/uL Hgb 12.4 L (13.0-17.5) gm/dL Hct 38.1 L (39.0-53.0) % Glucose 125 H (74-99) mg/dL Microbiology - Last 24 Hours (Table) 11/07/23 14:13 Blood Culture - Preliminary Blood 11/07/23 12:50 Gram Stain - Preliminary Leg - Left Wound Culture - Preliminary Presumptive MRSA 11/06/23 12:30 Gram Stain - Final Leg - Left Wound Culture - Final Methicillin resist S. aureus 11/05/23 23:43 Gram Stain - Final Leg - Left Wound Culture - Final Methicillin resist S. aureus
[2023-11-09] MEDS: HYDROmorphone 0.5 MG/0.5 ML SYRINGE IVP PRN (12:55)
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
[2023-11-09] MEDS: HYDROcodone/APAP 5-325MG 1 EACH TAB PO PRN (16:18)
[2023-11-10] MEDS: HYDROmorphone 1 MG/ML 1 ML SYRINGE IVP PRN ×4 (00:14→15:09)
[2023-11-10] MEDS: VANCOMYCIN 1,250 MG in SODIUM CHLORIDE 0.9% 250 ML IVPB SCH ×3 (00:14→15:09)
[2023-11-10] MEDS: HEPARIN SODIUM,PORCINE 5,000 UNIT/ML 1 ML VIAL SQ SCH ×3 (00:14→15:09)
[2023-11-10] MEDS: FAMOTIDINE 20 MG TAB PO SCH ×2 (07:53→20:07)
[2023-11-10] MEDS: SYMBICORT 160-4.5 MCG INHALER INHALATION SCH ×2 (08:51→21:29)
[2023-11-10 10:04] LABS: African American GFR (CKD) >90 (>60 ml/min/1.73 sqM); Non-African American GFR(CKD) >90 (>60 ml/min/1.73 sqM)
[2023-11-10] MEDS: HYDROcodone/APAP 5-325MG 1 EACH TAB PO PRN (11:37)
--- NOTE | 2023-11-10 12:54 | P.PN ---
Subjective Progress Note Date: 11/10/23 CHIEF COMPLAINT: Left lower leg abscess HISTORY OF PRESENT ILLNESS: Patient is postop day #3 status post incision and drainage with debridement of left calf abscess. Patient did shower yesterday. Dressing was changed yesterday. Patient does report pain but improving each day. Afebrile. Wound culture MRSA PHYSICAL EXAM: VITAL SIGNS: Reviewed. GENERAL: Well-developed in no acute distress. Extremities: Left calf dressing clean dry and intact. Wound was evaluated by Dr. Meyer and there was still presence of erythema around the wound ASSESSMENT: 1. Left calf abscess status post incision and drainage with debridement PLAN: -Patient to shower daily -Continue local wound care -Continue antibiotics per ID service Physician [employer] note has been reviewed by physician. Signing provider agrees with the documented findings, assessment, and plan of care. I have personally seen and examined the patient, reviewed the SECURITIES SETTLEMENT PROCESSOR /PAs history, exam and MDM and agree with the assessment and plan as written. Based on total visit time, I have performed more than 50% of the visit. As above: Patient doing better. Pain is improved. Wound is clean. Still with erythema. Continue local wound care. Continue antibiotics. Objective - Vital Signs Vital signs: Vital Signs Temp 97.9 F 11/10/23 08:00 Pulse 98 11/10/23 08:00 Resp 18 11/10/23 08:00 BP 146/94 11/10/23 08:00 Pulse Ox 93 L 11/10/23 08:00 FiO2 Intake & Output 11/09/23 11/10/23 11/10/23 18:59 06:59 18:59 Intake Total 510 240 Output Total 1350 975 400 Balance -840 -975 -160 Intake: IV 10 Invasive Line 3 10 Intake, IV Titration 500 Amount Vancomycin 1,250 mg In 500 Sodium Chloride 0.9% 250 ml @ 125 mls/hr IVPB Q8HR [facility] Rx#:[id number] Oral 240 Output: Urine 1350 975 400 Other: Voiding Method Toilet Toilet Toilet Urinal Urinal Urinal # Voids 1 - Labs CBC & Chem 7: 11/09/23 08:47 11/10/23 08:22 Labs: Microbiology - Last 24 Hours (Table) 11/07/23 14:13 Blood Culture - Preliminary Blood 11/07/23 12:50 Anaerobic Culture - Preliminary Leg - Left 11/07/23 12:50 Gram Stain - Final Leg - Left Wound Culture - Final Methicillin resist S. aureus
[2023-11-10 14:16] VITALS: BMI 22.8
[2023-11-10] MEDS: HYDROmorphone 0.5 MG/0.5 ML SYRINGE IVP PRN (20:07)
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
[2023-11-11] MEDS: HEPARIN SODIUM,PORCINE 5,000 UNIT/ML 1 ML VIAL SQ SCH ×4 (00:01→23:29)
[2023-11-11] MEDS: VANCOMYCIN 1,250 MG in SODIUM CHLORIDE 0.9% 250 ML IVPB SCH ×4 (00:01→23:29)
[2023-11-11] MEDS: TEMAZEPAM 7.5 MG CAP PO PRN ×2 (00:01→20:47)
[2023-11-11] MEDS: HYDROmorphone 0.5 MG/0.5 ML SYRINGE IVP PRN ×3 (00:06→23:54)
[2023-11-11] MEDS ORDERED: VANCOMYCIN TROUGH DUE 1 EACH MISC MISCELLANE ONE (07:00)
[2023-11-11 08:46] LABS: African American GFR (CKD) >90 (>60 ml/min/1.73 sqM); Anion Gap 12 mmol/L; Blood Urea Nitrogen 22 mg/dL (9-20); Calcium 9.1 mg/dL (8.4-10.2); Carbon Dioxide 23 mmol/L (22-30); Chloride 103 mmol/L (98-107); Glucose 190 mg/dL (74-99); Non-African American GFR(CKD) >90 (>60 ml/min/1.73 sqM); Potassium 4.3 mmol/L (3.5-5.1); Sodium 138 mmol/L (137-145)
[2023-11-11] MEDS: SYMBICORT 160-4.5 MCG INHALER INHALATION SCH ×2 (08:47→21:29)
[2023-11-11] MEDS: HYDROmorphone 1 MG/ML 1 ML SYRINGE IVP PRN ×4 (09:04→20:56)
[2023-11-11] MEDS: FAMOTIDINE 20 MG TAB PO SCH ×2 (09:04→20:47)
--- NOTE | 2023-11-11 11:35 | P.PN ---
Progress Note - Text Progress Note Date: 11/11/23 Patient status post I&D of the leg. The dressing is clean dry and intact. The wound looks good. The patient reports his pain is much better. Continue antibiotics. Increase amputation.
--- NOTE | 2023-11-11 19:50 | DS ---
DISCHARGE SUMMARY FINAL DIAGNOSES: 1. Left lower extremity abscess with surrounding cellulitis and MRSA. 2. Sepsis secondary to above. 3. Recent history of injury. 4. Asthma, chronic obstructive pulmonary disease. 5. Hypertension, improved. DISCHARGE DISPOSITION: The patient will be discharged in stable condition, guarded prognosis. HISTORY OF PRESENT ILLNESS: This is a 48-year-old gentleman, who was admitted with significant cellulitis and MRSA. The patient was treated with IV antibiotics. Dr. Gonzalez saw the patient and recommended p.o. Bactrim. PHYSICAL EXAMINATION: VITAL SIGNS: Stable. CARDIOVASCULAR: S1, S2. ABDOMEN: Soft. NERVOUS SYSTEM: Nonfocal. DISCHARGE MEDICATIONS: Continue with Symbicort and also Bactrim DS 1 p.o. b.i.d. for 10 days and follow up with Dr. Gonzalez and follow up with primary physician as recommended. See orders for further details. MMODL / IJN: [id number] /
[2023-11-12] MEDS: HYDROmorphone 0.5 MG/0.5 ML SYRINGE IVP PRN ×5 (03:41→23:57)
[2023-11-12 04:27] LABS: African American GFR (CKD) >90 (>60 ml/min/1.73 sqM); Non-African American GFR(CKD) >90 (>60 ml/min/1.73 sqM)
[2023-11-12] MEDS: SYMBICORT 160-4.5 MCG INHALER INHALATION SCH ×2 (08:57→18:35)
[2023-11-12] MEDS: HYDROcodone/APAP 5-325MG 1 EACH TAB PO PRN (08:58)
[2023-11-12] MEDS: FAMOTIDINE 20 MG TAB PO SCH ×2 (08:59→20:37)
[2023-11-12] MEDS: HEPARIN SODIUM,PORCINE 5,000 UNIT/ML 1 ML VIAL SQ SCH ×2 (08:59→17:19)
--- NOTE | 2023-11-12 10:35 | DS ---
DISCHARGE SUMMARY ADDENDUM: This is a 48-year-old gentleman admitted with left lower extremity infection, is being discharged today. PHYSICAL EXAMINATION: VITAL SIGNS: Stable. CARDIOVASCULAR: S1, S2. ABDOMEN: Soft. NERVOUS SYSTEM: No focal deficits. The patient will be discharged with outpatient antibiotics. Please refer to the previous discharge summary for details. MMODL / IJN: [id number] /
[2023-11-12] MEDS: VANCOMYCIN 1,250 MG in SODIUM CHLORIDE 0.9% 250 ML IVPB SCH ×3 (10:50→23:50)
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
--- NOTE | 2023-11-12 11:50 | PN ---
PROGRESS NOTE DATE OF SERVICE: 11/11/2023 SUBJECTIVE: This 48-year-old gentleman was admitted with left buttock abscess, cellulitis, is being closely monitored. No chest pain, no palpitation. ID has recommended outpatient antibiotics. OBJECTIVE: VITALS: Stable. CARDIOVASCULAR: S1, S2. ABDOMEN: Soft. NERVOUS SYSTEM: No focal deficits. LEGS: Infection improving. LABORATORY DATA: Reviewed. ASSESSMENT: 1. Left lower extremity abscess, neck cellulitis, and MRSA. 2. Sepsis secondary to above. 3. Recent history of injury. 4. Asthma, COPD. 5. Hypertension. RECOMMENDATIONS: Recommended to continue current management, continue symptomatic treatment. Otherwise clinical social work aide will explore the discharge options. The patient reports no ride at this time. Continue the antibiotics currently. See orders for details. Further recommendations to follow. MMODL / IJN: [id number] /
--- NOTE | 2023-11-12 14:45 | P.PN ---
Subjective Progress Note Date: 11/12/23 CHIEF COMPLAINT: Left lower leg abscess HISTORY OF PRESENT ILLNESS: The patient is a 48-year-old male status post drainage of left lower leg abscess. Patient reports moderate leg pain. He has been seen by infectious disease with antibiotics adjusted. His main concern is pain as discharge is anticipated. ROS: No reports of nausea and vomiting. No bowel movements. No fevers or chills. No new chest pain. No productive sputum PHYSICAL EXAM: VITAL SIGNS: Reviewed CONSTITUTIONAL: Well developed and in no acute distress. EYES: Conjuctivae without sclera icterus. Extraocular movements grossly intact. HEAD, EARS, NOSE, THROAT: Moist buccal mucosa. Head is atraumatic, normocephalic. Hears conversational speech. No nasal drainage. RESPIRATORY: Non-labored respirations and equal bilateral excursions. CARDIOVASCULAR: Palpable 2+ radial pulses. ABDOMEN: Nontender. MUSCULOSKELETAL: Dressing on the left lower leg. SKIN: Good skin turgor. Well perfused. NEUROLOGIC: Cranial nerves II through XII grossly intact. No focal or lateralizing signs. PSYCH: Appropriate affect. Alert and oriented to person, place and time. CLINICAL LABS: Reviewed. WBC normal. ASSESSMENT: 1. Left lower leg abscess PLAN: 1. Local wound care per infectious disease. 2. Recommend adjustment of pain management Objective - Vital Signs Vital signs: Vital Signs Temp 98.4 F 11/12/23 08:00 Pulse 87 11/12/23 08:00 Resp 17 11/12/23 08:00 BP 113/61 11/12/23 08:00 Pulse Ox 93 L 11/12/23 08:00 FiO2 Intake & Output 11/11/23 11/12/23 11/12/23 18:59 06:59 18:59 Intake Total 360 Output Total 500 700 Balance -140 -700 Intake: Oral 360 Output: Urine 500 700 Other: Voiding Method Toilet Toilet Urinal Urinal - Labs CBC & Chem 7: 11/09/23 08:47 11/12/23 03:39 Labs: Microbiology - Last 24 Hours (Table) 11/07/23 12:50 Anaerobic Culture - Final Leg - Left
[2023-11-12] MEDS: TEMAZEPAM 7.5 MG CAP PO PRN (20:45)
[2023-11-13] MEDS: HEPARIN SODIUM,PORCINE 5,000 UNIT/ML 1 ML VIAL SQ SCH ×4 (01:34→23:42)
[2023-11-13 05:06] LABS: African American GFR (CKD) >90 (>60 ml/min/1.73 sqM); Non-African American GFR(CKD) >90 (>60 ml/min/1.73 sqM)
[2023-11-13] MEDS: HYDROmorphone 0.5 MG/0.5 ML SYRINGE IVP PRN ×5 (05:09→21:22)
[2023-11-13] MEDS: FAMOTIDINE 20 MG TAB PO SCH ×2 (09:13→20:01)
[2023-11-13] MEDS: VANCOMYCIN 1,250 MG in SODIUM CHLORIDE 0.9% 250 ML IVPB SCH ×3 (09:13→23:42)
[2023-11-13] MEDS: SYMBICORT 160-4.5 MCG INHALER INHALATION SCH ×2 (09:23→19:51)
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
--- NOTE | 2023-11-13 18:11 | P.PN ---
Subjective Progress Note Date: 11/13/23 CHIEF COMPLAINT: Left lower leg abscess HISTORY OF PRESENT ILLNESS: The patient is a 48-year-old male status post drainage of left lower leg abscess. His discharge was held due to lack of antibiotics available over the Holiday. ROS: No reports of nausea and vomiting. No bowel movements. No fevers or chills. No new chest pain. No productive sputum PHYSICAL EXAM: VITAL SIGNS: Reviewed CONSTITUTIONAL: Well developed and in no acute distress. EYES: Conjuctivae without sclera icterus. Extraocular movements grossly intact. HEAD, EARS, NOSE, THROAT: Moist buccal mucosa. Head is atraumatic, n ormocephalic. Hears conversational speech. No nasal drainage. RESPIRATORY: Non-labored respirations and equal bilateral excursions. CARDIOVASCULAR: Palpable 2+ radial pulses. ABDOMEN: Nontender. MUSCULOSKELETAL: Dressing on the left lower leg. SKIN: Good skin turgor. Well perfused. NEUROLOGIC: Cranial nerves II through XII grossly intact. No focal or lateralizing signs. PSYCH: Appropriate affect. Alert and oriented to person, place and time. CLINICAL LABS: Reviewed. WBC normal. ASSESSMENT: 1. Left lower leg abscess PLAN: 1. Antibiotics per infectious disease. 2. Stable for discharge from surgical standpoint. Objective - Vital Signs Vital signs: Vital Signs Temp 98.3 F 11/13/23 14:00 Pulse 91 11/13/23 14:00 Resp 17 11/13/23 14:00 BP 103/65 11/13/23 14:00 Pulse Ox 96 11/13/23 14:00 FiO2 Intake & Output 11/12/23 11/13/23 11/13/23 18:59 06:59 18:59 Intake Total 250 Output Total 850 900 Balance -850 -900 250 Intake: Intake, IV Titration 250 Amount Vancomycin 1,250 mg In 250 Sodium Chloride 0.9% 250 ml @ 125 mls/hr IVPB Q8HR [facility] Rx#:[id number] Output: Urine 850 900 - Labs CBC & Chem 7: 11/09/23 08:47 11/13/23 04:30 Labs: Microbiology - Last 24 Hours (Table) 11/07/23 14:13 Blood Culture - Final Blood
--- NOTE | 2023-11-13 21:17 | PN ---
PROGRESS NOTE DATE OF SERVICE: 11/12/2023 SUBJECTIVE: This is a 48-year-old gentleman, who was admitted with left leg abscess with MRSA. He is being closely monitored. The patient reports having no monitor by any medications. manager appointment has been consulted. No chest pain. No palpitation. PHYSICAL EXAMINATION: VITAL SIGNS: Pulse is 76, blood pressure , and respirations 18. CHEST: Clear to auscultation. ABDOMEN: Soft. NERVOUS SYSTEM: status post infection. LABORATORY DATA: Reviewed. ASSESSMENT: 1. Left lower extremity abscess and cellulitis with MRSA. 2. Sepsis secondary to above. 3. Recent history of injury. 4. Asthma, chronic obstructive pulmonary disease. 5. Hypertension. RECOMMENDATIONS: Recommended to continue current management and continue symptomatic treatment. The social work case management to evaluate the home situation. Arrange appropriate safe discharge planning and continue to monitor. Further recommendations to follow. YOL / NATALIN: [id number] / MTDD
[2023-11-14] MEDS: HYDROmorphone 0.5 MG/0.5 ML SYRINGE IVP PRN ×2 (01:22→06:20)
[2023-11-14] MEDS: TEMAZEPAM 7.5 MG CAP PO PRN (01:22)
[2023-11-14] MEDS ORDERED: VANCOMYCIN TROUGH DUE 1 EACH MISC MISCELLANE ONE (07:00)
[2023-11-14] MEDS: SYMBICORT 160-4.5 MCG INHALER INHALATION SCH (07:44)
[2023-11-14 07:59] LABS: African American GFR (CKD) >90 (>60 ml/min/1.73 sqM); Non-African American GFR(CKD) >90 (>60 ml/min/1.73 sqM)
[2023-11-14] MEDS: FAMOTIDINE 20 MG TAB PO SCH (08:38)
[2023-11-14] MEDS: HEPARIN SODIUM,PORCINE 5,000 UNIT/ML 1 ML VIAL SQ SCH (08:38)
[2023-11-14 08:41] VITALS: BP 104/68; PULSE 88; RESP 17; TEMP 98.3
[2023-11-14] MEDS: VANCOMYCIN 1,250 MG in SODIUM CHLORIDE 0.9% 250 ML IVPB SCH (08:41)
[2023-11-14] MEDS: HYDROcodone/APAP 5-325MG 1 EACH TAB PO PRN (10:29)
[2023-11-14] MEDS ORDERED: SULFAMETHOX-TMP 800-160MG 1 EACH TAB PO SCH (10:30)
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
--- NOTE | 2023-11-15 09:20 | P.DS ---
Providers Date of admission: 11/05/23 23:40 Expected date of discharge: 11/14/23 Attending physician: Kenny Glynn MD Consults: 11/05/23 23:40 Consult Physician Routine Consulting Provider: Estela Gonzalez Consult Reason/Comments: Left leg infection Do you want consulting provider notified?: Yes 11/06/23 11:33 Consult Physician Routine Consulting Provider: Edilberto Bowles Consult Reason/Comments: left leg abscess, trauma hx Do you want consulting provider notified?: Yes 11/06/23 15:41 Consult Physician Routine Consulting Provider: Eros Meyer Consult Reason/Comments: left leg wound Do you want consulting provider notified?: Yes Primary care physician: Stated None Hospital Course: Final diagnosis Left lower extremity abscess and cellulitis, present on admission with MRSA Sepsis, present on admission secondary to above Recent history of left lower extremity injury asthma with chronic obstructive pulmonary disease, not in exacerbation Hypertension Discharge disposition Patient is being discharged in a stable condition with guarded prognosis to home with home care. Patient will follow-up with Dr. Jose Peña in the outpatient setting upon discharge. Patient is to continue with antibiotics in the form of Bactrim DS twice daily for the next 10 days and close outpatient follow-up with infectious disease as scheduled. Total time taken is greater than 35 minutes. Hospital course This is a 48-year-old male who was recently admitted with left leg abscess with MRSA with infectious disease following. Patient is status post debridement and general surgery has cleared the patient. Patient culture showing MRSA and will continue on Bactrim twice daily with close outpatient follow-up with infectious disease Dr. Gonzalez. Patient reports he sees a PA at an urgent care in [place] and will provide resources to establish with a primary care provider. Patient has been cleared by consultations. Please refer to consultation notes for further HPI. Currently no reports of chest pain, shortness of breath, or palpitations. Patient is afebrile. No reports of nausea or vomiting and patient is tolerating diet. Patient will be discharged home today. Guarded prognosis and high risk for readmissions with noncompliance to outpatient follow-up Physical exam: Gen: This is a 48-year-old male who is awake, alert and oriented 3, thin built, appears older than stated age, well-developed HEENT: Head is atraumatic, normocephalic. Pupils equal, round. Sclerae is anicteric. NECK: Supple. No JVD. No lymphadenopathy. No thyromegaly. LUNGS: Clear to auscultation. No wheezes or rhonchi. No intercostal retractions. HEART: Regular rate and rhythm. No murmur. ABDOMEN: Soft. Bowel sounds are present. No masses. No tenderness. EXTREMITIES: No pedal edema. No calf tenderness. NEUROLOGICAL: Patient is awake, alert and oriented x3. Cranial nerves 2 through 12 are grossly intact. Please refer to medication reconciliation sheet for a list of medications. The impression and plan of care has been dictated by Lauren Greer, Nurse Practitioner as directed. Dr. Casey MD I have performed a history and examination and MDM of this patient, discussed the same with the dictator, and agree with the dictator's assessment and plan as written ,documented as a scribe. Based on total visit time, I have performed more than 50% of the visit. Patient Condition at Discharge: Stable Plan - Discharge Summary Discharge Rx Participant: No New Discharge Prescriptions: New Sulfamethox-Tmp 800-160Mg [Bactrim DS 800-160 mg] 1 tab PO Q12HR #20 tab Acetaminophen Tab [Tylenol] 650 mg PO Q6HR PRN tab PRN Reason: Mild Pain Or Fever > 100.5 Ibuprofen [Motrin] 400 mg PO Q6HR PRN #10 tab PRN Reason: Pain Continue Budesonide/Formoterol Fumarate [Symbicort 160-4.5 Mcg Inhaler] 2 puff INHALATION RT-BID Albuterol Inhaler [Ventolin Hfa Inhaler] 1 - 2 puff INHALATION RT-Q4H PRN PRN Reason: Shortness Of Breath Discharge Medication List Albuterol Inhaler [Ventolin Hfa Inhaler] 1 - 2 puff INHALATION RT-Q4H PRN 10/02/23 [History] Budesonide/Formoterol Fumarate [Symbicort 160-4.5 Mcg Inhaler] 2 puff INHALATION RT-BID 10/02/23 [History] Sulfamethox-Tmp 800-160Mg [Bactrim DS 800-160 mg] 1 tab PO Q12HR #20 tab 11/13/23 [Rx] Acetaminophen Tab [Tylenol] 650 mg PO Q6HR PRN tab 11/14/23 [Rx] Ibuprofen [Motrin] 400 mg PO Q6HR PRN #10 tab 11/14/23 [Rx] Follow up Appointment(s)/Referral(s): [facility], [NON-STAFF] - As Needed Eliza Phelps MD [STAFF PHYSICIAN] - 1 Week (office closed at time of discharge, please call Wednesday 11/14 for appt) Estela Gonzalez MD [STAFF PHYSICIAN] - 2 Weeks (office closed at time of discharge.. Please call to schedule appointment ) Patient Instructions/Handouts: Abscess (GEN), Incision and Drainage (DC) Activity/Diet/Wound Care/Special Instructions: Activity Limited until follow-up Follow-up with primary care provider upon discharge Follow-up with surgery outpatient Follow-up with infectious disease outpatient Continue taking antibiotics until finished Discharge Disposition: HOME WITH HOME HEALTH SERVICES
== END 2023-11-14 13:23 | disposition home health service (06) | DRG 710 ==
LOC: EC 23:21 → 3SCARD 23:40 → 4SSUR 11-12 00:34
PROVIDERS: ADMIT Internal Medicine; ATTEND Internal Medicine
PROC: 0KBT0ZZ Excision of Left Lower Leg Muscle, Open Approach (ICD-10-PCS; principal; 2023-11-07 07:30)
DX: A41.02 Sepsis due to Methicillin resistant Staphylococcus aureus (principal); F17.210 Nicotine dependence, cigarettes, uncomplicated; I10 Essential (primary) hypertension; J44.9 Chronic obstructive pulmonary disease, unspecified; L97.225 Non-pressure chronic ulcer of left calf with muscle involvement without evidence of necrosis; L03.116 Cellulitis of left lower limb; L02.416 Cutaneous abscess of left lower limb; Z79.51 Long term (current) use of inhaled steroids; Z28.310 Unvaccinated for COVID-19; Z28.21 Immunization not carried out because of patient refusal; Z71.3 Dietary counseling and surveillance; M31.19 Other thrombotic microangiopathy; S87.82XS Crushing injury of left lower leg, sequela; V03.99XS Pedestrian with other conveyance injured in collision with car, pick-up truck or van, unspecified whether traffic or nontraffic accident, sequela; Z91.199 Patient's noncompliance with other medical treatment and regimen due to unspecified reason
CPT/HCPCS: 36415; 80048; 80053; 80202; 82565; 83605; 85025; 87040; 87070; 87075; 87077; 87186; 87205; 94640; 96365; 96366; 96368; 96375; 99285

== ENCOUNTER 2024-08-06 02:38 | Emergency (ER) | payer OTHER ==
--- NOTE | 2024-08-06 02:52 | ED ---
Recheck HPI <Daniel Sanchez - Last Filed: 08/07/24 15:14> - General Source: patient, RN notes reviewed, old records reviewed Mode of arrival: EMS Limitations: no limitations - History of Present Illness MD Complaint: abnormal lab (Elevated alk phos), other (Gallbladder dilated) -: days(s) Returns Today for: persistent/worsening pain related to initial visit Symptoms Since Prior Visit: worsening pain Associated Symptoms: none <Daniel Abel - Last Filed: 08/19/24 09:07> - General Chief Complaint: Abdominal Pain Stated Complaint: Gall Bladder Inflammation Time Seen by Provider: 08/06/24 02:49 - History of Present Illness Initial Comments: Was patient admitted / discharged? Hospital course, mention meds given and route, prescriptions, significant lab abnormalities, going to OR and other pertinent info. @ -Patient was signed out to me by Dr. Abel at 3 PM[address] I spoke with Dr. Pizano she suggested we speak with [facility]. I spoke with [facility] they are willing to accept the patient however there would be a couple days before they can take the patient. I consulted sound physicians to medically manage the patient while he remained in our ER. Undiagnosed new problem with uncertain prognosis? @ -No Drug Therapy requiring intensive monitoring for toxicity (Heparin, Nitro, Insulin, Cardizem)? @ -No Were any procedures done? @ -No Diagnosis/symptom? @ -Complications biliary stent Acute, or Chronic, or Acute on Chronic? @ -Acute Uncomplicated (without systemic symptoms) or Complicated (systemic symptoms)? @ -Complicated Side effects of treatment? @ -No Exacerbation, Progression, or Severe Exacerbation? @ -No Poses a threat to life or bodily function? How? (Chest pain, [place], [place], pneumonia, PE, COPD, DKA, ARF, appy, cholecystitis, CVA, Diverticulitis, Homicidal, Suicidal, threat to staff... and all critical care pts) @ -Yes this can cause a complete blockage and increased liver enzymes. (Daniel Sanchez) This is a 49-year-old male who presents today for evaluation of right upper quadrant abdominal pain patient has had gallbladder dilation with history of abdominal surgery. Patient is unsure of events surrounding abdominal surgery but states the pain is her right upper quadrant is severely worse today. Patient is transferred to our hospital for ultrasound of the gallbladder (Daniel Abel) - Related Data Home Medications Medication Instructions Recorded Confirmed Albuterol Inhaler [Ventolin Hfa 1 - 2 puff INHALATION RT-Q4H PRN 10/02/23 08/06/24 Inhaler] Budesonide/Formoterol Fumarate 2 puff INHALATION RT-BID 10/02/23 08/06/24 [Symbicort 160-4.5 Mcg Inhaler] Cetirizine HCl 10 mg PO DAILY 08/06/24 08/06/24 Ipratropium-Albuterol Nebulize 3 ml INHALATION RT-QID PRN 08/06/24 08/06/24 [Duoneb 0.5 mg-3 mg/3 ml Soln] metFORMIN HCL [Glucophage] 1,000 mg PO BID 08/06/24 08/06/24 Allergies Allergy/AdvReac Type Severity Reaction Status Date / Time No Known Allergies Allergy Verified 11/06/23 07:37 Review of Systems ROS Other: All systems not noted in ROS Statement are negative. <Daniel Sanchez - Last Filed: 08/07/24 15:14> ROS Other: All systems not noted in ROS Statement are negative. <Daniel Abel - Last Filed: 08/19/24 09:07> ROS Statement: Those systems with pertinent positive or pertinent negative responses have been documented in the HPI. Past Medical History Past Medical History: Asthma, COPD Additional Past Medical History / Comment(s): treated OP for leg infection History of Any Multi-Drug Resistant Organisms: MRSA Date of last positivie culture/infection: 11/07/23 MDRO Source:: Left Leg Past Surgical History: No Surgical Hx Reported Past Psychological History: No Psychological Hx Reported Smoking Status: Former smoker, Never smoker Past Alcohol Use History: Occasional Past Drug Use History: None Reported <Daniel Abel - Last Filed: 08/19/24 09:07> General Exam Limitations: no limitations General appearance: alert, in no apparent distress, anxious Head exam: Present: atraumatic, normocephalic, normal inspection Eye exam: Present: normal appearance, PERRL, EOMI. Absent: scleral icterus, conjunctival injection, periorbital swelling ENT exam: Present: normal exam, mucous membranes moist Neck exam: Present: normal inspection. Absent: tenderness, meningismus, lymphadenopathy Respiratory exam: Present: normal lung sounds bilaterally. Absent: respiratory distress, wheezes, rales, rhonchi, stridor Cardiovascular Exam: Present: regular rate, normal rhythm, normal heart sounds. Absent: systolic murmur, diastolic murmur, rubs, gallop, clicks GI/Abdominal exam: Present: soft, tenderness, normal bowel sounds. Absent: distended, guarding, rebound, rigid Extremities exam: Present: normal inspection, full ROM, normal capillary refill. Absent: tenderness, pedal edema, joint swelling, calf tenderness Back exam: Present: normal inspection Neurological exam: Present: alert, oriented X3, CN II-XII intact Psychiatric exam: Present: normal affect, normal mood Skin exam: Present: warm, dry, intact, normal color. Absent: rash <Daniel Abel B - Last Filed: 08/19/24 09:07> Course <Daniel Abel - Last Filed: 08/19/24 09:07> Vital Signs 08/06/24 08/06/24 08/06/24 02:41 02:45 03:13 Temperature 97.6 F Pulse Rate 86 91 Respiratory 18 17 Rate Blood Pressure 178/113 155/104 162/100 O2 Sat by Pulse 96 94 L Oximetry 08/06/24 08/06/24 08/06/24 03:45 04:36 05:18 Temperature 98.4 F Pulse Rate 84 75 75 Respiratory 17 17 17 Rate Blood Pressure 157/82 149/97 137/86 O2 Sat by Pulse 94 L 93 L 92 L Oximetry 08/06/24 08/06/24 08/06/24 06:02 08:17 10:59 Temperature 97.9 F Pulse Rate 77 76 78 Respiratory 18 18 18 Rate Blood Pressure 142/99 143/92 152/83 O2 Sat by Pulse 95 94 L 98 Oximetry 08/06/24 08/06/24 08/06/24 13:09 15:24 18:44 Temperature 97.9 F Pulse Rate 74 81 92 Respiratory 16 18 20 Rate Blood Pressure 181/100 161/104 148/86 O2 Sat by Pulse 94 L 95 97 Oximetry 08/06/24 08/07/24 08/07/24 22:00 02:00 06:41 Temperature Pulse Rate 72 68 69 Respiratory 16 16 16 Rate Blood Pressure 164/91 143/84 158/96 O2 Sat by Pulse 97 99 97 Oximetry 08/07/24 08/07/24 08/07/24 10:45 15:52 18:16 Temperature Pulse Rate 89 97 92 Respiratory 18 16 18 Rate Blood Pressure 140/96 129/96 153/90 O2 Sat by Pulse 97 97 97 Oximetry 08/07/24 08/08/24 08/08/24 20:00 00:30 04:11 Temperature 98.1 F Pulse Rate 82 105 H 95 Respiratory 18 18 18 Rate Blood Pressure 142/98 125/110 129/108 O2 Sat by Pulse 96 95 95 Oximetry 08/08/24 08/08/24 08/08/24 07:12 07:54 09:00 Temperature 97.6 F Pulse Rate 95 92 Respiratory 18 18 16 Rate Blood Pressure 126/99 113/100 O2 Sat by Pulse 96 95 Oximetry 08/08/24 08/08/24 08/08/24 10:00 11:08 12:33 Temperature Pulse Rate 94 90 95 Respiratory 18 18 18 Rate Blood Pressure 123/95 127/96 O2 Sat by Pulse 96 96 95 Oximetry 08/08/24 08/08/24 08/08/24 13:58 15:51 18:26 Temperature Pulse Rate 102 H 101 H 79 Respiratory 16 18 18 Rate Blood Pressure 136/101 133/94 133/89 O2 Sat by Pulse 96 95 100 Oximetry 08/08/24 08/08/24 08/09/24 20:05 22:55 02:13 Temperature Pulse Rate 95 89 88 Respiratory 16 16 17 Rate Blood Pressure 110/96 124/106 130/80 O2 Sat by Pulse 100 99 99 Oximetry 08/09/24 08/09/24 04:59 07:32 Temperature 98.6 F Pulse Rate 73 88 Respiratory 16 18 Rate Blood Pressure 122/102 140/84 O2 Sat by Pulse 95 98 Oximetry - Reevaluation(s) Reevaluation #1: 08/06/24 05:30 Records reviewed 08/06/24 05:30 And paperwork is reviewed (Daniel Abel) Reevaluation #2: Patient symptoms improving and improved on arrival to this hospital (Daniel Abel) Reevaluation #3: Patient informed of results and questions answered (Daniel Abel) Reevaluation #4: Was pt. sent in by a medical professional or institution (GEORGIANA Kaplan, INTERNAL MEDICINE NURSE, urgent care, hospital, or alf...) When possible be specific @ -no Did you speak to anyone other than the patient for history (EMS, parent, family, police, friend...)? What history was obtained from this source @ -no Did you review nursing and triage notes (agree or disagree)? Why? @ -agree Are old charts reviewed (outside hosp., previous admission, EMS record, old EKG, old radiological studies, urgent care reports/EKG's, alf records)? Report findings @ -yes Differential Diagnosis (chest pain, altered mental status, abdominal pain women, abdominal pain men, vaginal bleeding, weakness, fever, dyspnea, syncope, headache, dizziness, GI bleed, back pain, seizure, CVA, palpatations, mental health, musculoskeletal)? @ -prior EKG interpreted by me (3pts min.). @ -no X-rays interpreted by me (1pt min.). @ -no CT interpreted by me (1pt min.). @ -no U/S interpreted by me (1pt. min.). @ -no What testing was considered but not performed or refused? (CT, X-rays, U/S, labs)? Why? @ -none What meds were considered but not given or refused? Why? @ -none Did you discuss the management of the patient with other professionals (dena rosario i.e. GEORGIANA Kaplan, INTERNAL MEDICINE NURSE, lab, RT, psych nurse, marriage and family social worker, tree and shrub worker, teacher, armored vehicle officer, assistant case manager)? Give summary @ -no Was smoking cessation discussed for >3mins.? @ -no Was critical care preformed (if so, how long)? @ -no Were there social determinants of health that impacted care today? How? (Homelessness, low income, unemployed, alcoholism, drug addiction, transportation, low edu. Level, literacy, decrease access to med. care, [place] [facility], rehab)? @ -none Was there de-escalation of care discussed even if they declined (Discuss DNR or withdrawal of care, Hospice)? DNR status @ -no What co-morbidities impacted this encounter? (DM, HTN, Smoking, COPD, CAD, Cancer, CVA, ARF, Chemo, Hep., AIDS, mental health diagnosis, sleep apnea, morbid obesity)? @ -none Was patient admitted / discharged? Hospital course, mention meds given and route, prescriptions, significant lab abnormalities, going to OR and other pertinent info. @ -49 male excepted as transfer for ultrasound of the gallbladder Undiagnosed new problem with uncertain prognosis? @ -no Drug Therapy requiring intensive monitoring for toxicity (Heparin, Nitro, Insulin, Cardizem)? @ -no Were any procedures done? @ -no Diagnosis/symptom? @ -Biliary disease, biliary colic Acute, or Chronic, or Acute on Chronic? @ -Acute Uncomplicated (without systemic symptoms) or Complicated (systemic symptoms)? @ -Complicated Side effects of treatment? @ -no Exacerbation, Progression, or Severe Exacerbation? @ -exacerbation Poses a threat to life or bodily function? How? (Chest pain, [place], [place], pneumonia, PE, COPD, DKA, ARF, appy, cholecystitis, CVA, Diverticulitis, Homicidal, Suicidal, threat to staff... and all critical care pts) @ -yes postoperative complication (Daniel Abel) Reevaluation #5: Differential Abdominal Pain Men: Appendicitis, cholecystitis, diverticulosis, ischemic bowel, pancreatitis, hepatitis, UTI, gastroenteritis, AAA, incarcerated hernia, bowel obstruction, constipation, inflammatory bowel, hepatitis, peptic ulcer disease, splenic infarction, perforated viscus, testicular torsion, this is not meant to be an all-inclusive list (Daniel Abel) Medical Decision Making - Lab Data Result diagrams: 08/07/24 06:41 08/07/24 06:41 <Daniel Sanchez - Last Filed: 08/07/24 15:14> - Lab Data Result diagrams: 08/09/24 07:06 08/09/24 07:06 <Daniel Abel - Last Filed: 08/19/24 09:07> - Medical Decision Making I spoke with [facility] they are willing to take the patient but they have no openings at this time and they state that the patient may not have an available spot for days. (Daniel Sanchez) 49 male who will need to be transferred back to [facility] for evaluation after receiving ultrasound here in the ER for possible stent biliary stent and postoperative complication (Daniel Abel) - Lab Data Lab Results 08/06/24 08/06/24 08/06/24 Range/Units 03:11 03:11 03:11 WBC 6.3 (3.8-10.6) k/uL RBC 4.20 L (4.30-5.90) m/uL Hgb 13.3 (13.0-17.5) gm/dL Hct 40.2 (39.0-53.0) % MCV 95.5 (80.0-100.0) fL MCH 31.6 (25.0-35.0) pg MCHC 33.1 (31.0-37.0) g/dL RDW 14.7 (11.5-15.5) % Plt Count 206 (150-450) k/uL MPV 9.2 Neutrophils % 66 % Lymphocytes % 22 % Monocytes % 6 % Eosinophils % 3 % Basophils % 0 % Neutrophils # 4.2 (1.3-7.7) k/uL Lymphocytes # 1.4 (1.0-4.8) k/uL Monocytes # 0.4 (0-1.0) k/uL Eosinophils # 0.2 (0-0.7) k/uL Basophils # 0.0 (0-0.2) k/uL Hypochromasia Sodium 137 (137-145) mmol/L Potassium 4.6 (3.5-5.1) mmol/L Chloride 108 H (98-107) mmol/L Carbon Dioxide 20 L (22-30) mmol/L Anion Gap 9 mmol/L BUN 17 (9-20) mg/dL Creatinine 0.58 L (0.66-1.25) mg/dL Est GFR (CKD-EPI)AfAm >90 (>60 ml/min/1.73 sqM) Est GFR (CKD-EPI)NonAf >90 (>60 ml/min/1.73 sqM) Glucose 110 H (74-99) mg/dL POC Glucose (mg/dL) (70-110) mg/dL POC Glu Type Disk Quality Control Supervisor ID Estimated Ave Glu mg/dL mg/dL Hemoglobin A1c (<=6.0) % Plasma Lactic Acid Georgi 0.7 (0.7-2.0) mmol/L Calcium 8.6 (8.4-10.2) mg/dL Total Bilirubin 1.0 (0.2-1.3) mg/dL AST 78 H (17-59) U/L ALT 69 H (4-49) U/L Alkaline Phosphatase 1176 H (38-126) U/L C-Reactive Protein 2.6 H (<1.0) mg/dL Total Protein 6.2 L (6.3-8.2) g/dL Albumin 3.4 L (3.5-5.0) g/dL Amylase 43 (30-110) U/L Lipase 34 (23-300) U/L 08/06/24 08/06/24 08/07/24 Range/Units 14:40 20:18 02:19 WBC (3.8-10.6) k/uL RBC (4.30-5.90) m/uL Hgb (13.0-17.5) gm/dL Hct (39.0-53.0) % MCV (80.0-100.0) fL MCH (25.0-35.0) pg MCHC (31.0-37.0) g/dL RDW (11.5-15.5) % Plt Count (150-450) k/uL MPV Neutrophils % % Lymphocytes % % Monocytes % % Eosinophils % % Basophils % % Neutrophils # (1.3-7.7) k/uL Lymphocytes # (1.0-4.8) k/uL Monocytes # (0-1.0) k/uL Eosinophils # (0-0.7) k/uL Basophils # (0-0.2) k/uL Hypochromasia Sodium (137-145) mmol/L Potassium (3.5-5.1) mmol/L Chloride (98-107) mmol/L Carbon Dioxide (22-30) mmol/L Anion Gap mmol/L BUN (9-20) mg/dL Creatinine (0.66-1.25) mg/dL Est GFR (CKD-EPI)AfAm (>60 ml/min/1.73 sqM) Est GFR (CKD-EPI)NonAf (>60 ml/min/1.73 sqM) Glucose (74-99) mg/dL POC Glucose (mg/dL) 103 123 H 114 H (70-110) mg/dL POC Glu Type Disk Quality Control Supervisor EULALIA Mary, Kaycee Leslie Riva Estimated Ave Glu mg/dL mg/dL Hemoglobin A1c (<=6.0) % Plasma Lactic Acid Georgi (0.7-2.0) mmol/L Calcium (8.4-10.2) mg/dL Total Bilirubin (0.2-1.3) mg/dL AST (17-59) U/L ALT (4-49) U/L Alkaline Phosphatase (38-126) U/L C-Reactive Protein (<1.0) mg/dL Total Protein (6.3-8.2) g/dL Albumin (3.5-5.0) g/dL Amylase (30-110) U/L Lipase (23-300) U/L 08/07/24 08/07/24 08/07/24 Range/Units 06:40 06:41 06:41 WBC 4.6 (3.8-10.6) k/uL RBC 4.83 (4.30-5.90) m/uL Hgb 14.7 (13.0-17.5) gm/dL Hct 46.4 (39.0-53.0) % MCV 96.0 (80.0-100.0) fL MCH 30.5 (25.0-35.0) pg MCHC 31.7 (31.0-37.0) g/dL RDW 14.0 (11.5-15.5) % Plt Count 262 (150-450) k/uL MPV 8.0 Neutrophils % 57 % Lymphocytes % 27 % Monocytes % 7 % Eosinophils % 5 % Basophils % 1 % Neutrophils # 2.6 (1.3-7.7) k/uL Lymphocytes # 1.3 (1.0-4.8) k/uL Monocytes # 0.3 (0-1.0) k/uL Eosinophils # 0.2 (0-0.7) k/uL Basophils # 0.0 (0-0.2) k/uL Hypochromasia Sodium 136 L (137-145) mmol/L Potassium 3.8 (3.5-5.1) mmol/L Chloride 106 (98-107) mmol/L Carbon Dioxide 21 L (22-30) mmol/L Anion Gap 9 mmol/L BUN 19 (9-20) mg/dL Creatinine 0.60 L (0.66-1.25) mg/dL Est GFR (CKD-EPI)AfAm >90 (>60 ml/min/1.73 sqM) Est GFR (CKD-EPI)NonAf >90 (>60 ml/min/1.73 sqM) Glucose 109 H (74-99) mg/dL POC Glucose (mg/dL) (70-110) mg/dL POC Glu Type Disk Quality Control Supervisor ID Estimated Ave Glu mg/dL 126 mg/dL Hemoglobin A1c 6.0 (<=6.0) % Plasma Lactic Acid Georgi (0.7-2.0) mmol/L Calcium 8.6 (8.4-10.2) mg/dL Total Bilirubin 0.9 (0.2-1.3) mg/dL AST 84 H (17-59) U/L ALT 68 H (4-49) U/L Alkaline Phosphatase 1260 H (38-126) U/L C-Reactive Protein (<1.0) mg/dL Total Protein 6.2 L (6.3-8.2) g/dL Albumin 3.4 L (3.5-5.0) g/dL Amylase (30-110) U/L Lipase (23-300) U/L 08/07/24 08/07/24 08/08/24 Range/Units 15:53 20:51 02:28 WBC (3.8-10.6) k/uL RBC (4.30-5.90) m/uL Hgb (13.0-17.5) gm/dL Hct (39.0-53.0) % MCV (80.0-100.0) fL MCH (25.0-35.0) pg MCHC (31.0-37.0) g/dL RDW (11.5-15.5) % Plt Count (150-450) k/uL MPV Neutrophils % % Lymphocytes % % Monocytes % % Eosinophils % % Basophils % % Neutrophils # (1.3-7.7) k/uL Lymphocytes # (1.0-4.8) k/uL Monocytes # (0-1.0) k/uL Eosinophils # (0-0.7) k/uL Basophils # (0-0.2) k/uL Hypochromasia Sodium (137-145) mmol/L Potassium (3.5-5.1) mmol/L Chloride (98-107) mmol/L Carbon Dioxide (22-30) mmol/L Anion Gap mmol/L BUN (9-20) mg/dL Creatinine (0.66-1.25) mg/dL Est GFR (CKD-EPI)AfAm (>60 ml/min/1.73 sqM) Est GFR (CKD-EPI)NonAf (>60 ml/min/1.73 sqM) Glucose (74-99) mg/dL POC Glucose (mg/dL) 99 98 186 H (70-110) mg/dL POC Glu Type Disk Quality Control Supervisor EULALIA Lyndsey Lockett Ifeoma Nguyen Kyle [address] Glu mg/dL mg/dL Hemoglobin A1c (<=6.0) % Plasma Lactic Acid Georgi (0.7-2.0) mmol/L Calcium (8.4-10.2) mg/dL Total Bilirubin (0.2-1.3) mg/dL AST (17-59) U/L ALT (4-49) U/L Alkaline Phosphatase (38-126) U/L C-Reactive Protein (<1.0) mg/dL Total Protein (6.3-8.2) g/dL Albumin (3.5-5.0) g/dL Amylase (30-110) U/L Lipase (23-300) U/L 08/08/24 08/08/24 08/08/24 Range/Units 07:56 14:23 19:53 WBC (3.8-10.6) k/uL RBC (4.30-5.90) m/uL Hgb (13.0-17.5) gm/dL Hct (39.0-53.0) % MCV (80.0-100.0) fL MCH (25.0-35.0) pg MCHC (31.0-37.0) g/dL RDW (11.5-15.5) % Plt Count (150-450) k/uL MPV Neutrophils % % Lymphocytes % % Monocytes % % Eosinophils % % Basophils % % Neutrophils # (1.3-7.7) k/uL Lymphocytes # (1.0-4.8) k/uL Monocytes # (0-1.0) k/uL Eosinophils # (0-0.7) k/uL Basophils # (0-0.2) k/uL Hypochromasia Sodium (137-145) mmol/L Potassium (3.5-5.1) mmol/L Chloride (98-107) mmol/L Carbon Dioxide (22-30) mmol/L Anion Gap mmol/L BUN (9-20) mg/dL Creatinine (0.66-1.25) mg/dL Est GFR (CKD-EPI)AfAm (>60 ml/min/1.73 sqM) Est GFR (CKD-EPI)NonAf (>60 ml/min/1.73 sqM) Glucose (74-99) mg/dL POC Glucose (mg/dL) 117 H 247 H 157 H (70-110) mg/dL POC Glu Type Disk Quality Control Supervisor ID Miki, Khang Borrero, Lily Borrero, Lily Estimated Ave Glu mg/dL mg/dL Hemoglobin A1c (<=6.0) % Plasma Lactic Acid Georgi (0.7-2.0) mmol/L Calcium (8.4-10.2) mg/dL Total Bilirubin (0.2-1.3) mg/dL AST (17-59) U/L ALT (4-49) U/L Alkaline Phosphatase (38-126) U/L C-Reactive Protein (<1.0) mg/dL Total Protein (6.3-8.2) g/dL Albumin (3.5-5.0) g/dL Amylase (30-110) U/L Lipase (23-300) U/L 08/09/24 08/09/24 08/09/24 Range/Units 01:08 07:06 07:06 WBC 5.8 (3.8-10.6) k/uL RBC 4.76 (4.30-5.90) m/uL Hgb 14.5 (13.0-17.5) gm/dL Hct 46.6 (39.0-53.0) % MCV 98.0 (80.0-100.0) fL MCH 30.6 (25.0-35.0) pg MCHC 31.2 (31.0-37.0) g/dL RDW 14.1 (11.5-15.5) % Plt Count 350 (150-450) k/uL MPV 7.9 Neutrophils % 52 % Lymphocytes % 31 % Monocytes % 9 % Eosinophils % 4 % Basophils % 1 % Neutrophils # 3.0 (1.3-7.7) k/uL Lymphocytes # 1.8 (1.0-4.8) k/uL Monocytes # 0.5 (0-1.0) k/uL Eosinophils # 0.2 (0-0.7) k/uL Basophils # 0.0 (0-0.2) k/uL Hypochromasia Slight Sodium 137 (137-145) mmol/L Potassium 4.2 (3.5-5.1) mmol/L Chloride 103 (98-107) mmol/L Carbon Dioxide 25 (22-30) mmol/L Anion Gap 9 mmol/L BUN 29 H (9-20) mg/dL Creatinine 0.81 (0.66-1.25) mg/dL Est GFR (CKD-EPI)AfAm >90 (>60 ml/min/1.73 sqM) Est GFR (CKD-EPI)NonAf >90 (>60 ml/min/1.73 sqM) Glucose 306 H (74-99) mg/dL POC Glucose (mg/dL) 174 H (70-110) mg/dL POC Glu Type Disk Quality Control Supervisor ID Maricruz Crowell Estimated Ave Glu mg/dL mg/dL Hemoglobin A1c (<=6.0) % Plasma Lactic Acid Georgi (0.7-2.0) mmol/L Calcium 9.0 (8.4-10.2) mg/dL Total Bilirubin 0.7 (0.2-1.3) mg/dL AST 75 H (17-59) U/L ALT 58 H (4-49) U/L Alkaline Phosphatase 1283 H (38-126) U/L C-Reactive Protein (<1.0) mg/dL Total Protein 6.1 L (6.3-8.2) g/dL Albumin 3.4 L (3.5-5.0) g/dL Amylase (30-110) U/L Lipase (23-300) U/L 08/09/24 Range/Units 08:14 WBC (3.8-10.6) k/uL RBC (4.30-5.90) m/uL Hgb (13.0-17.5) gm/dL Hct (39.0-53.0) % MCV (80.0-100.0) fL MCH (25.0-35.0) pg MCHC (31.0-37.0) g/dL RDW (11.5-15.5) % Plt Count (150-450) k/uL MPV Neutrophils % % Lymphocytes % % Monocytes % % Eosinophils % % Basophils % % Neutrophils # (1.3-7.7) k/uL Lymphocytes # (1.0-4.8) k/uL Monocytes # (0-1.0) k/uL Eosinophils # (0-0.7) k/uL Basophils # (0-0.2) k/uL Hypochromasia Sodium (137-145) mmol/L Potassium (3.5-5.1) mmol/L Chloride (98-107) mmol/L Carbon Dioxide (22-30) mmol/L Anion Gap mmol/L BUN (9-20) mg/dL Creatinine (0.66-1.25) mg/dL Est GFR (CKD-EPI)AfAm (>60 ml/min/1.73 sqM) Est GFR (CKD-EPI)NonAf (>60 ml/min/1.73 sqM) Glucose (74-99) mg/dL POC Glucose (mg/dL) 282 H (70-110) mg/dL POC Glu Type Disk Quality Control Supervisor ID Patti Rodriguez Estimated Ave Glu mg/dL mg/dL Hemoglobin A1c (<=6.0) % Plasma Lactic Acid Georgi (0.7-2.0) mmol/L Calcium (8.4-10.2) mg/dL Total Bilirubin (0.2-1.3) mg/dL AST (17-59) U/L ALT (4-49) U/L Alkaline Phosphatase (38-126) U/L C-Reactive Protein (<1.0) mg/dL Total Protein (6.3-8.2) g/dL Albumin (3.5-5.0) g/dL Amylase (30-110) U/L Lipase (23-300) U/L Disposition - Out of Hospital Transfer - Req. Specs Out of Hospital Transfer - Requested Specifics: Other Emergency Center ([facility]) <Daniel Sanchez - Last Filed: 08/07/24 15:14> Is patient prescribed a controlled substance at d/c from ED?: No <Daniel Abel - Last Filed: 08/19/24 09:07> Clinical Impression: Obstruction of biliary stent Disposition: OTHER INSTITUTION NOT DEFINED Condition: Fair Referrals: [facility] [NON-STAFF] - 1-2 days [facility] [NON-STAFF] - 1-2 days None,Stated [Primary Care Provider] - 1-2 days
[2024-08-06] MEDS: SODIUM CHLORIDE 0.9% 1,000 ML IV STA (02:54)
[2024-08-06] MEDS: ONDANSETRON 4 MG/2 ML VIAL IVP STA (02:55)
[2024-08-06] MEDS: HYDROmorphone 1 MG/ML 1 ML SYRINGE IVP STA (02:59)
[2024-08-06] MEDS: PANTOPRAZOLE 40 MG/10 ML VIAL IVP STA (03:00)
[2024-08-06 03:23] LABS: Basophils % (A) 0 %; Eosinophils # (A) 0.2 k/uL (0-0.7); Eosinophils % (A) 3 %; HCT 40.2 % (39.0-53.0); HGB 13.3 gm/dL (13.0-17.5); Lymphocytes # (A) 1.4 k/uL (1.0-4.8); Lymphocytes % (A) 22 %; MCH 31.6 pg (25.0-35.0); MCHC 33.1 g/dL (31.0-37.0); MCV 95.5 fL (80.0-100.0); Mean Platelet Volume 9.2; Monocytes # (A) 0.4 k/uL (0-1.0); Monocytes % (A) 6 %; Neutrophils # (A) 4.2 k/uL (1.3-7.7); Neutrophils % (A) 66 %; Platelet Count 206 k/uL (150-450); RDW 14.7 % (11.5-15.5); WBC 6.3 k/uL (3.8-10.6)
[2024-08-06 03:37] LABS: ALT 69 U/L (4-49); African American GFR (CKD) >90 (>60 ml/min/1.73 sqM); Amylase 43 U/L (30-110); Anion Gap 9 mmol/L; Blood Urea Nitrogen 17 mg/dL (9-20); C Reactive Protein 2.6 mg/dL (<1.0); Calcium 8.6 mg/dL (8.4-10.2); Carbon Dioxide 20 mmol/L (22-30); Chloride 108 mmol/L (98-107); Glucose 110 mg/dL (74-99); Lipase 34 U/L (23-300); Non-African American GFR(CKD) >90 (>60 ml/min/1.73 sqM); Sodium 137 mmol/L (137-145)
[2024-08-06 03:41] LABS: AST 78 U/L (17-59); Albumin 3.4 g/dL (3.5-5.0); Alkaline Phosphatase 1176 U/L (38-126); Potassium 4.6 mmol/L (3.5-5.1); Total Protein 6.2 g/dL (6.3-8.2)
[2024-08-06] MEDS: HYDROmorphone 0.5 MG/0.5 ML SYRINGE IVP STA (08:26)
--- NOTE | 2024-08-06 08:32 | US ---
EXAMINATION TYPE: US gallbladder DATE OF EXAM: 08/06/2024 COMPARISON: NONE CLINICAL INDICATION: Male, 49 years old with history of pain; abd pain, h/o gb attacks TECHNIQUE: Multiple sonographic images of the right upper quadrant are obtained. FINDINGS: EXAM MEASUREMENTS: Liver Length: 10.2 cm Gallbladder Wall: 0.2 cm CBD: 0.9 cm. Normal less than 0.5 cm at this age. Right Kidney: 10.2 x 4.5 x 3.8 cm Pancreas: wnl Liver: wnl Gallbladder: single, mobile 7mm non-shadowing stone seen. Differential could include a small polyp. Evidence for sonographic Buchanan's sign: no CBD: mild dilation with no obvious etiology Right Kidney: wnl IMPRESSION: 1. Cholelithiasis. 2. Dilatation common bile duct. [facility] Callum Anand, , 08/06/2024 8:30 AM
[2024-08-06] MEDS ORDERED: NON FORMULARY DRUG (Albuterol Inhaler 90 MCG Puff) INHALATION PRN (14:28)
[2024-08-06] MEDS ORDERED: IPRATROPIUM-ALBUTEROL 3 ML NEB INHALATION PRN (14:28)
[2024-08-06] MEDS ORDERED: DEXTROSE 50% SYRINGE 50 ML IVP PRN ×2 (14:29)
[2024-08-06 14:41] LABS: Glucose,Whole Blood 103 mg/dL (70-110)
[2024-08-06] MEDS: INSULIN ASPART (NovoLOG) 100 UNIT/ML VIAL SQ SCH (14:41)
--- NOTE | 2024-08-06 15:53 | P.CONS ---
History of Present Illness - Reason for Consult Consult date: 08/06/24 - Chief Complaint RUQ abdominal pain - History of Present Illness Patient is a 49-year-old male with PMH of COPD comes to the emergency department with a right upper quadrant abdominal pain from past 2 weeks. Patient states that he has been endorsing sharp right upper quadrant pain which initially started gradually and was intermittent but has progressively gotten worse and has become more constant and is associated with pruritus. He reports no alleviating or aggravating factors. He reports darker colored stools but denies bloody stools. Patient has a previous episode of right upper quadrant abdominal pain associated with jaundice for which he was hospitalized and had a biliary stent placement at [facility] 6 months ago. The stent was supposed to be removed 2 months ago but patient did not have resources to get to [facility]. He states that he was asymptomatic until 2 weeks ago. Reports no nausea or vomiting, fever, chills. Denies diarrhea or constipation. He denies chest pain. He reports mild shortness of breath at the time of interview. At home he is on Ventolin and Symbicort inhalers along with DuoNebs which he says helps him with the shortness of breath. At the ED patient received pain treatment with Dilaudid which helped him with the pain. Laboratory evaluation at ED shows WBC 6.3, hemoglobin 13.3, hematocrit 40.2, MCV 95.5, platelet count 206, sodium 137, potassium 4.6, chloride 108, bicarb 20, creatinine 0.58, BUN 17, glucose 110, total bili 1.0, AST 78, ALT 69, alkaline phosphatase 1176, C-reactive 2.6, total protein 6.2, albumin 3.4, amylase 43, lipase 34 Ultrasound of gallbladder shows 7 mm stone in the gallbladder. Common bile duct show mild dilatation of 0.9 cm. Review of systems: Pertinent positives and negatives as discussed in HPI, a complete review of systems was performed and all other systems are negative. 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 Family History: None Physical examination: Vital signs reviewed General: non toxic, no distress, appears at stated age, normal weight Derm: no unusual rashes/lesions, warm Head: atraumatic, normocephalic, symmetric Eyes: EOMI, no lid lag, anicteric sclera, pupils equal round reactive to light ENT: Nose and ears atraumatic Neck: No cervical lymphadenopathy, trachea midline, supple Mouth: no lip lesion, mucus membranes moist Cardiovascular: S1S2 reg, no murmur, positive dorsalis pedis pulse bilateral, no edema Lungs: Scattered wheezing, bilateral rhonchi, no rales, no accessory muscle use Abdominal: Right upper quarter tenderness upon palpation, mildly distended with mild guarding but no rebound tenderness, bowel sounds positive Ext: muscle strength 5 out of 5 in all 4 extremities grossly, no gross muscle atrophy, no contractures, Neuro: CN II-XI grossly intact, no gross focal neuro deficits Psych: Alert, oriented, appropriate affect Assessment/Plan: 49-year-old male with PMH of COPD comes to the emergency department with a right upper quadrant abdominal pain from past 2 weeks. Medicine consulted and patient is admitted for medical management for choledocholithiasis pending transfer to [facility] for possible ERCP. #Cholelithiasis, suspected choledocholithiasis #Transaminitis secondary to above #Elevated alkaline phosphatase secondary to above #Hyperchloremic metabolic acidosis secondary to IV NS Ultrasound of gallbladder shows 7 mm stone in the gallbladder. Common bile duct show mild dilatation of 0.9 cm. Pain control: Status post IVP Dilaudid x 2 in ED Biliary stent placement 6 months ago at [facility] ERCP at [facility]; pending patient transfer IV fluids: Status post 1 L IV normal saline in ED Monitor CMP Pain control with [place] 5 every 6 IV as needed, monitor for sedation -Started on clear liquid diet, advance diet if tolerated, unsure how long till patient will be transferred #COPD, not in exacerbation Resume DuoNeb 3 mL inhalation 4 times daily as needed Resume Symbicort inhaler 2 puff twice daily #Hyperglycemia Type 2 diabetes Serum glucose 110 Started on short acting sliding scale insulin, every 6 hours, monitor for hypoglycemia Continue monitor serum glucose -Hold home metformin DVT prophylaxis: None Thank you for allowing us to participate in the care of this pleasant patient. Do not hesitate to contact us with questions. Someone can be reached from the [facility] hospitalist group all hours of the day at [phone] or via perfect serve. I have seen and evaluated the patient today. Discussed with the resident and agree with the residents finding and plan as documented in the resident's note. Changes highlighted in blue font. Past Medical History Past Medical History: Asthma, COPD Additional Past Medical History / Comment(s): treated OP for leg infection History of Any Multi-Drug Resistant Organisms: MRSA Year Discovered:: 11/07/23 MDRO Source:: Left Leg Past Surgical History: No Surgical Hx Reported Past Psychological History: No Psychological Hx Reported Smoking Status: Former smoker, Never smoker Past Alcohol Use History: Occasional Past Drug Use History: None Reported Medications and Allergies Home Medications Medication Instructions Recorded Confirmed Type Albuterol Inhaler [Ventolin Hfa 1 - 2 puff INHALATION RT-Q4H PRN 10/02/23 08/06/24 History Inhaler] Budesonide/Formoterol Fumarate 2 puff INHALATION RT-BID 10/02/23 08/06/24 History [Symbicort 160-4.5 Mcg Inhaler] Cetirizine HCl 10 mg PO DAILY 08/06/24 08/06/24 History Ipratropium-Albuterol Nebulize 3 ml INHALATION RT-QID PRN 08/06/24 08/06/24 History [Duoneb 0.5 mg-3 mg/3 ml Soln] metFORMIN HCL [Glucophage] 1,000 mg PO BID 08/06/24 08/06/24 History Allergies Allergy/AdvReac Type Severity Reaction Status Date / Time No Known Allergies Allergy Verified 11/06/23 07:37 Physical Exam Vitals: Vital Signs Temp Pulse Resp BP Pulse Ox 08/06/24 15:24 97.9 F 81 18 161/104 95 08/06/24 13:09 74 16 181/100 94 L 08/06/24 10:59 78 18 152/83 98 08/06/24 08:17 76 18 143/92 94 L 08/06/24 06:02 97.9 F 77 18 142/99 95 08/06/24 05:18 75 17 137/86 92 L 08/06/24 04:36 75 17 149/97 93 L 08/06/24 03:45 98.4 F 84 17 157/82 94 L 08/06/24 03:13 91 17 162/100 94 L 08/06/24 02:45 155/104 08/06/24 02:41 97.6 F 86 18 178/113 96 Intake and Output 08/06/24 08/06/2424 06:59 14:59 22:59 Other: Weight 67.5 kg Results CBC & Chem 7: 08/06/24 03:11 08/06/24 03:11 Labs: Abnormal Lab Results - Last 24 Hours (Table) 08/06/24 08/06/24 Range/Units 03:11 03:11 RBC 4.20 L (4.30-5.90) m/uL Chloride 108 H (98-107) mmol/L Carbon Dioxide 20 L (22-30) mmol/L Creatinine 0.58 L (0.66-1.25) mg/dL Glucose 110 H (74-99) mg/dL AST 78 H (17-59) U/L ALT 69 H (4-49) U/L Alkaline Phosphatase 1176 H (38-126) U/L C-Reactive Protein 2.6 H (<1.0) mg/dL Total Protein 6.2 L (6.3-8.2) g/dL Albumin 3.4 L (3.5-5.0) g/dL
[2024-08-06] MEDS: HYDROcodone/APAP 5-325MG 1 EACH TAB PO PRN (16:59)
[2024-08-06] MEDS: SYMBICORT 160-4.5 MCG INHALER INHALATION SCH (18:49)
[2024-08-06 20:20] LABS: Glucose,Whole Blood 123 mg/dL (70-110)
[2024-08-07 02:21] LABS: Glucose,Whole Blood 114 mg/dL (70-110)
[2024-08-07 06:49] LABS: Basophils % (A) 1 %; Eosinophils # (A) 0.2 k/uL (0-0.7); Eosinophils % (A) 5 %; HCT 46.4 % (39.0-53.0); HGB 14.7 gm/dL (13.0-17.5); Lymphocytes # (A) 1.3 k/uL (1.0-4.8); Lymphocytes % (A) 27 %; MCH 30.5 pg (25.0-35.0); MCHC 31.7 g/dL (31.0-37.0); Monocytes # (A) 0.3 k/uL (0-1.0); Monocytes % (A) 7 %; Neutrophils # (A) 2.6 k/uL (1.3-7.7); Neutrophils % (A) 57 %; Platelet Count 262 k/uL (150-450); RBC 4.83 m/uL (4.30-5.90); WBC 4.6 k/uL (3.8-10.6)
[2024-08-07 07:00] LABS: ALT 68 U/L (4-49); AST 84 U/L (17-59); African American GFR (CKD) >90 (>60 ml/min/1.73 sqM); Albumin 3.4 g/dL (3.5-5.0); Anion Gap 9 mmol/L; Blood Urea Nitrogen 19 mg/dL (9-20); Calcium 8.6 mg/dL (8.4-10.2); Carbon Dioxide 21 mmol/L (22-30); Chloride 106 mmol/L (98-107); Glucose 109 mg/dL (74-99); Non-African American GFR(CKD) >90 (>60 ml/min/1.73 sqM); Potassium 3.8 mmol/L (3.5-5.1); Sodium 136 mmol/L (137-145); Total Bilirubin 0.9 mg/dL (0.2-1.3); Total Protein 6.2 g/dL (6.3-8.2)
[2024-08-07 07:16] LABS: Alkaline Phosphatase 1260 U/L (38-126)
[2024-08-07] MEDS: LORATADINE 10 MG TAB PO SCH (10:44)
[2024-08-07 15:57] LABS: Glucose,Whole Blood 99 mg/dL (70-110)
--- NOTE | 2024-08-07 16:37 | P.PN ---
Subjective Progress Note Date: 08/07/24 Hospital course: 49-year-old male with PMH of COPD comes to the emergency department with a right upper quadrant abdominal pain from past 2 weeks. Patient states that he has been endorsing sharp right upper quadrant pain which initially started gradually and was intermittent but has progressively gotten worse and has become more constant and is associated with pruritus. He reports no alleviating or ag gravating factors. He reports darker colored stools but denies bloody stools. Patient has a previous episode of right upper quadrant abdominal pain associated with jaundice for which he was hospitalized and had a biliary stent placement at [facility] 6 months ago. The stent was supposed to be removed 2 months ago but patient did not have resources to get to [facility]. He states that he was asymptomatic until 2 weeks ago. Reports no nausea or vomiting, fever, chills. Denies diarrhea or constipation. He denies chest pain. He reports mild shortness of breath at the time of interview. At home he is on Ventolin and Symbicort inhalers along with DuoNebs which he says helps him with the shortness of breath. At the ED patient received pain treatment with Dilaudid which helped him with the pain. Laboratory evaluation at ED shows WBC 6.3, hemoglobin 13.3, hematocrit 40.2, MCV 95.5, platelet count 206, sodium 137, potassium 4.6, chloride 108, bicarb 20, creatinine 0.58, BUN 17, glucose 110, total bili 1.0, AST 78, ALT 69, alkaline phosphatase 1176, C-reactive 2.6, total protein 6.2, albumin 3.4, amylase 43, lipase 34. Ultrasound of gallbladder shows 7 mm stone in the gallbladder. Common bile duct show mild dilatation of 0.9 cm. Medicine team consulted and patient is admitted for medical management for choledocholithiasis pending transfer to [facility] for possible ERCP. Subjective: Patient seen and examined at the bedside. No acute events overnight. All Systems reviewed and pertinent positives and negatives noted in HPI, all other symptoms are negative Objective: Vital signs reviewed. General: non toxic, no distress, appears at stated age, normal weight Derm: no unusual rashes/lesions, warm Head: atraumatic, normocephalic, symmetric Eyes: EOMI, no lid lag, anicteric sclera, pupils equal round reactive to light ENT: Nose and ears atraumatic Neck: No cervical lymphadenopathy, trachea midline, supple Mouth: no lip lesion, mucus membranes moist Cardiovascular: S1S2 reg, no murmur, positive dorsalis pedis pulse bilateral, no edema Lungs: Scattered wheezing, bilateral rhonchi, no rales, no accessory muscle use Abdominal: Right upper quarter tenderness upon palpation, mildly distended with mild guarding but no rebound tenderness, bowel sounds positive Ext: muscle strength 5 out of 5 in all 4 extremities grossly, no gross muscle atrophy, no contractures, Neuro: CN II-XI grossly intact, no gross focal neuro deficits Psych: Alert, oriented, appropriate affect Data reviewed today: Labs: WBC 4.6, hemoglobin 14.7, MCV 96.0, platelet count 262, sodium 136, potassium 3.8, bicarb 21, BUN 19, creatinine 0.6, HbA1c 6.0, AST 84, ALT 68, ALP 1260 Images: No new imaging Assessment/Plan: 49-year-old male with PMH of COPD comes to the emergency department with a right upper quadrant abdominal pain from past 2 weeks. Medicine consulted and patient is admitted for medical management for choledocholithiasis pending transfer to [facility] for possible ERCP. #Cholelithiasis, suspected choledocholithiasis #Transaminitis secondary to above #Elevated alkaline phosphatase secondary to above #Hyperchloremic metabolic acidosis, resolved Ultrasound of gallbladder shows 7 mm stone in the gallbladder. Common bile duct show mild dilatation of 0.9 cm. Pain control: Status post IVP Dilaudid x 2 in ED Biliary stent placement 6 months ago at [facility] ERCP at [facility]; pending patient transfer IV fluids: Status post 1 L IV normal saline in ED Monitor CMP Pain control with [place] 5 every 6 IV as needed, monitor for sedation Started on clear liquid diet, advance diet if tolerated, unsure how long till patient will be transferred #COPD, not in exacerbation Resume DuoNeb 3 mL inhalation 4 times daily as needed Resume Symbicort inhaler 2 puff twice daily #Hyperglycemia Type 2 diabetes Serum glucose 110 Started on short acting sliding scale insulin, every 6 hours, monitor for hypoglycemia Continue monitor serum glucose -Hold home metformin F: None E: Replete as needed N: Clear liquid diet A: Ambulate DVT ppx: none Code Status: Full code Thank you for allowing us to participate in the care of this pleasant patient. Do not hesitate to contact us with questions. Someone can be reached from the [facility] hospitalist group all hours of the day at [phone] or via perfect serve. I have seen and evaluated the patient today. Discussed with the resident and agree with the residents finding and plan as documented in the resident's note. Changes highlighted in blue font. Objective - Vital Signs Vital signs: Vital Signs Temp 97.9 F 08/06/24 15:24 Pulse 97 08/07/24 15:52 Resp 16 08/07/24 15:52 BP 129/96 08/07/24 15:52 Pulse Ox 97 08/07/24 15:52 FiO2 - Labs CBC & Chem 7: 08/07/24 06:41 08/07/24 06:41 Labs: Abnormal Lab Results - Last 24 Hours (Table) 08/06/24 08/07/24 08/07/24 Range/Units 20:18 02:19 06:41 Sodium 136 L (137-145) mmol/L Carbon Dioxide 21 L (22-30) mmol/L Creatinine 0.60 L (0.66-1.25) mg/dL Glucose 109 H (74-99) mg/dL POC Glucose (mg/dL) 123 H 114 H (70-110) mg/dL AST 84 H (17-59) U/L ALT 68 H (4-49) U/L Alkaline Phosphatase 1260 H (38-126) U/L Total Protein 6.2 L (6.3-8.2) g/dL Albumin 3.4 L (3.5-5.0) g/dL
[2024-08-07 20:52] LABS: Glucose,Whole Blood 98 mg/dL (70-110)
[2024-08-08 02:30] LABS: Glucose,Whole Blood 186 mg/dL (70-110)
[2024-08-08 07:57] LABS: Glucose,Whole Blood 117 mg/dL (70-110)
[2024-08-08 14:24] LABS: Glucose,Whole Blood 247 mg/dL (70-110)
--- NOTE | 2024-08-08 14:29 | P.PN ---
Subjective Progress Note Date: 08/08/24 Hospital course: 49-year-old male with PMH of COPD comes to the emergency department with a right upper quadrant abdominal pain from past 2 weeks. Patient states that he has been endorsing sharp right upper quadrant pain which initially started gradually and was intermittent but has progressively gotten worse and has become more constant and is associated with pruritus. He reports no alleviating or ag gravating factors. He reports darker colored stools but denies bloody stools. Patient has a previous episode of right upper quadrant abdominal pain associated with jaundice for which he was hospitalized and had a biliary stent placement at [facility] 6 months ago. The stent was supposed to be removed 2 months ago but patient did not have resources to get to [facility]. He states that he was asymptomatic until 2 weeks ago. Reports no nausea or vomiting, fever, chills. Denies diarrhea or constipation. He denies chest pain. He reports mild shortness of breath at the time of interview. At home he is on Ventolin and Symbicort inhalers along with DuoNebs which he says helps him with the shortness of breath. At the ED patient received pain treatment with Dilaudid which helped him with the pain. Laboratory evaluation at ED shows WBC 6.3, hemoglobin 13.3, hematocrit 40.2, MCV 95.5, platelet count 206, sodium 137, potassium 4.6, chloride 108, bicarb 20, creatinine 0.58, BUN 17, glucose 110, total bili 1.0, AST 78, ALT 69, alkaline phosphatase 1176, C-reactive 2.6, total protein 6.2, albumin 3.4, amylase 43, lipase 34. Ultrasound of gallbladder shows 7 mm stone in the gallbladder. Common bile duct show mild dilatation of 0.9 cm. Medicine team consulted and patient is admitted for medical management for choledocholithiasis pending transfer to [facility] for possible ERCP. Subjective: Patient seen and examined at the bedside. No acute events overnight. All Systems reviewed and pertinent positives and negatives noted in HPI, all other symptoms are negative Objective: Vital signs reviewed. General: non toxic, no distress, appears at stated age, normal weight Derm: no unusual rashes/lesions, warm Head: atraumatic, normocephalic, symmetric Eyes: EOMI, no lid lag, anicteric sclera, pupils equal round reactive to light ENT: Nose and ears atraumatic Neck: No cervical lymphadenopathy, trachea midline, supple Mouth: no lip lesion, mucus membranes moist Cardiovascular: S1S2 reg, no murmur, positive dorsalis pedis pulse bilateral, no edema Lungs: Scattered wheezing, bilateral rhonchi, no rales, no accessory muscle use Abdominal: Right upper quarter tenderness upon palpation, mildly distended with mild guarding but no rebound tenderness, bowel sounds positive Ext: muscle strength 5 out of 5 in all 4 extremities grossly, no gross muscle atrophy, no contractures, Neuro: CN II-XI grossly intact, no gross focal neuro deficits Psych: Alert, oriented, appropriate affect Data reviewed today: Labs: Glucose 247 Images: No new imaging Assessment/Plan: 49-year-old male with PMH of COPD comes to the emergency department with a right upper quadrant abdominal pain from past 2 weeks. Medicine consulted and patient is admitted for medical management for choledocholithiasis pending transfer to [facility] for possible ERCP. #Cholelithiasis, suspected choledocholithiasis #Transaminitis secondary to above #Elevated alkaline phosphatase secondary to above #Hyperchloremic metabolic acidosis, resolved Ultrasound of gallbladder shows 7 mm stone in the gallbladder. Common bile duct show mild dilatation of 0.9 cm. Pain control: Status post IVP Dilaudid x 2 in ED Biliary stent placement 6 months ago at [facility] ERCP at [facility]; pending patient transfer IV fluids: Status post 1 L IV normal saline in ED Monitor CMP Pain control with [place] 5 every 6 IV as needed, monitor for sedation Diet is advanced to regular #COPD, not in exacerbation Resume DuoNeb 3 mL inhalation 4 times daily as needed Resume Symbicort inhaler 2 puff twice daily #Hyperglycemia Type 2 diabetes Serum glucose 110 Started on short acting sliding scale insulin, every 6 hours, monitor for hypoglycemia Continue monitor serum glucose -Hold home metformin F: None E: Replete as needed N: Regular diet A: Ambulate DVT ppx: none Code Status: Full code I saw and evaluated the patient during the waters and critical portions of this encounter, and discussed the case in detail with the resident author of this note, I agree with the Assessment and Plan, and my changes, if any, are highlighted in blue. Objective - Vital Signs Vital signs: Vital Signs Temp 97.6 F 08/08/24 07:54 Pulse 102 H 08/08/24 13:58 Resp 16 08/08/24 13:58 BP 136/101 08/08/24 13:58 Pulse Ox 96 08/08/24 13:58 FiO2 Intake & Output 08/07/24 08/08/24 08/08/24 18:59 06:59 18:59 Output Total 200 Balance -200 Output: Urine 200 - Labs CBC & Chem 7: 08/07/24 06:41 08/07/24 06:41 Labs: Abnormal Lab Results - Last 24 Hours (Table) 08/08/24 08/08/24 08/08/24 Range/Units 02:28 07:56 14:23 POC Glucose (mg/dL) 186 H 117 H 247 H (70-110) mg/dL
[2024-08-08 19:55] LABS: Glucose,Whole Blood 157 mg/dL (70-110)
[2024-08-09 01:09] LABS: Glucose,Whole Blood 174 mg/dL (70-110)
[2024-08-09 07:33] VITALS: BP 140/84; PULSE 88; RESP 18; TEMP 98.6
[2024-08-09 08:11] LABS: Basophils % (A) 1 %; Eosinophils # (A) 0.2 k/uL (0-0.7); Eosinophils % (A) 4 %; HCT 46.6 % (39.0-53.0); HGB 14.5 gm/dL (13.0-17.5); Hypochromasia Slight; Lymphocytes # (A) 1.8 k/uL (1.0-4.8); Lymphocytes % (A) 31 %; MCH 30.6 pg (25.0-35.0); MCHC 31.2 g/dL (31.0-37.0); Mean Platelet Volume 7.9; Monocytes # (A) 0.5 k/uL (0-1.0); Monocytes % (A) 9 %; Neutrophils % (A) 52 %; Platelet Count 350 k/uL (150-450); RBC 4.76 m/uL (4.30-5.90); RDW 14.1 % (11.5-15.5); WBC 5.8 k/uL (3.8-10.6)
[2024-08-09 08:14] LABS: ALT 58 U/L (4-49); AST 75 U/L (17-59); African American GFR (CKD) >90 (>60 ml/min/1.73 sqM); Albumin 3.4 g/dL (3.5-5.0); Alkaline Phosphatase 1283 U/L (38-126); Anion Gap 9 mmol/L; Blood Urea Nitrogen 29 mg/dL (9-20); Carbon Dioxide 25 mmol/L (22-30); Chloride 103 mmol/L (98-107); Glucose 306 mg/dL (74-99); Non-African American GFR(CKD) >90 (>60 ml/min/1.73 sqM); Potassium 4.2 mmol/L (3.5-5.1); Sodium 137 mmol/L (137-145); Total Bilirubin 0.7 mg/dL (0.2-1.3); Total Protein 6.1 g/dL (6.3-8.2)
[2024-08-09 08:16] LABS: Glucose,Whole Blood 282 mg/dL (70-110)
== END 2024-08-09 08:39 | disposition other institution (70) ==
LOC: EC 02:38
CPT/HCPCS: 36415; 76705; 80053; 82150; 83036; 83605; 83690; 85025; 86140; 94640; 96361; 96374; 96375; 96376; 99285